=== PATIENT | female | born 1970 | race Caucasian/White ===

== ENCOUNTER → 2017-10-09 | Outpatient (CLI) | payer OTHER ==
[~2017-10-09] MED LIST: CLR10 PO; MTR600X PO; [UNRECOGNIZED DRUG - OTHER] INTNAS
--- NOTE | 2017-10-12 15:02 | MAMMOGRAPHY REPORT ---
BILATERAL DIGITAL SCREENING MAMMOGRAM TOMOSYNTHESIS WITH CAD: 10/09/2017 CLINICAL HISTORY: Routine screening. Patient has no complaints. TECHNIQUE: Breast tomosynthesis in addition to standard 2D mammography was performed. Current study was also evaluated with a Computer Aided Detection (CAD) system. COMPARISON: Comparison is made to exams dated: 09/17/2016 mammogram, 05/11/2015 mammogram, 03/24/2014 mammogram, 11/19/2012 mammogram, and 03/14/2011 mammogram - [facility]. BREAST COMPOSITION: The tissue of both breasts is heterogeneously dense, which may obscure small mas ses. FINDINGS: No suspicious masses, calcifications, or areas of architectural distortion are noted in ei ther breast. There has been no significant interval change compared to prior exams. Bilateral asymme tries are stable. IMPRESSION: ACR BI-RADS CATEGORY 2: BENIGN There is no mammographic evidence of malignancy. A 1 year screening mammogram is recommended. The pa tient will receive written notification of the results. Approximately 10% of breast cancers are not detected with mammography. A negative mammographic report should not delay biopsy if a clinically suggestive mass is present. Tiffanie Lopez M.D. ah/:10/09/2017 15:41:36 Doughnut Maker: Sandrita ROPER(Justin)(Daniella), [facility] letter sent: Normal 1/2 BI-RADS Code: ACR BI-RADS Category 2: Benign
== END | disposition home or self-care (01) ==
LOC: C.MAMM 13:09
PROVIDERS: ATTEND Obstetrics & Gynecology
DX: Z12.31 Encounter for screening mammogram for malignant neoplasm of breast (principal)

== ENCOUNTER 2017-12-27 15:04 | Emergency (ER) | payer OTHER ==
[~2017-12-27] VITALS: Ht 180.3 cm; Wt 84.0 kg
[2017-12-27 15:29] VITALS: BP 147/90; PULSE 89; TEMP 36.8; O2SAT 99; Ht 180.3 cm; Wt 84.0 kg
--- NOTE | 2017-12-27 16:09 | DIAGNOSTIC IMAGING REPORT ---
RIGHT LOWER EXTREMITY VENOUS DOPPLER HISTORY: R calf edema, erythema, pain COMPARISON STUDY: None. FINDINGS: There is normal compressibility, flow, and augmentation within the right lower extremity deep venous system. IMPRESSION: No DVT within the right lower extremity Electronically signed by: Papi Castillo M.D. 12/27/2017 4:08 PM Dictated Date/Time: 12/27/2017 4:08 PM
[2017-12-27] MEDS ORDERED: AZEL0.15 NAE (16:18)
--- NOTE | 2017-12-27 16:32 | EMERGENCY ROOM VISIT NOTE ---
History First contact with patient: 15:34 Chief Complaint: LEG PAIN,LEG INJURY Stated Complaint: RT LEG PAIN, SWOLLEN History of Present Illness The patient is a 47 year old female who presents to the Emergency Room with complaints of right calf cramping and pain that extends into the posterior thigh region. The patient reports that her symptoms started in the middle of the night last night. The patient got out of bed to walk on it thinking that it was just a cramp. She reports persistent pain. She thinks that the calf is larger than the left calf. The patient reports that she does travel extensively for work, driving 6 hours this past Thursday and . She was also on my long air flight 2 weeks ago. The pain does occasionally radiate into the buttock and lower back region. She denies any history of back problems. She currently denies any paresthesias or numbness of the right lower extremity, and rates her discomfort a 6 out of 10. The patient denies any prior history of blood clots or coagulopathies. She denies any recent chest pain, shortness of breath or headache. Review of Systems 10 system review was performed and was negative except for pertinent positives and negatives as indicated in history of present illness Past Medical/Surgical History Medical Problems: (1) Abnormal uterine bleeding (AUB) (2) Leiomyoma of uterus Family History Unremarkable Social History Smoking Status: Never Smoker Alcohol Use: occasionally Marital Status: Housing Status: lives with family Occupation Status: employed Current/Historical Medications Scheduled Azelastine Hcl (Astepro), 1 SPRY ROCIO DAILY Physical Exam Vital Signs Date Time Temp Pulse Resp B/P (MAP) Pulse Ox O2 Delivery O2 Flow Rate FiO2 12/27/17 15:29 36.8 89 18 147/90 99 Room Air Physical Exam CONSTITUTIONAL: Healthy and well nourished. Alert and oriented X 3 with positive affect. Patient appears in mild discomfort from pain. HEENT: Normocephalic, atraumatic. Pupils equal, round and reactive. NECK: Full active range of motion without discomfort. RESPIRATORY: Clear to auscultation bilaterally with no wheezing, crackles, rhonchi or stridor. CARDIOVASCULAR: Regular rate and rhythm with no murmurs, rubs or gallops. MUSCULOSKELETAL: Examination of the right lower extremity does not show any obvious erythema. She has mild soft tissue edema of the calf. She is tender to palpation of the gastroc and distal biceps muscles/hamstrings. She has no other focal tenderness to palpation through the knee, and no joint effusion. Flexion and extension of the knee does not worsen her discomfort. Negative logroll. Negative straight leg raise. Pedal pulses are intact. INTEGUMENTARY: No rash or other significant dermatologic conditions noted. NEUROLOGIC: No focal neurologic deficits noted. Right foot and toes are sensory intact. Medical Decision & Procedures ER Provider Diagnostic Interpretation: Venous ultrasound of the right lower extremity is negative for deep vein thrombosis. Radiologist report is as follows: RIGHT LOWER EXTREMITY VENOUS DOPPLER HISTORY: R calf edema, erythema, pain COMPARISON STUDY: None. FINDINGS: There is normal compressibility, flow, and augmentation within the right lower extremity deep venous system. IMPRESSION: No DVT within the right lower extremity ED Course Patient history and physical exam were performed. Nurse's notes were reviewed. Vital signs were reviewed, showing a mildly elevated blood pressure. The patient is afebrile. The patient refused any analgesics. Ultrasound of the right lower extremity was negative for deep vein thrombosis. The patient was advised that this is likely a musculoskeletal injury. She was encouraged to alternate ice and heat to calf. An Suleiman wrap was also applied. The patient was instructed to follow-up with her PCP or orthopedics if symptoms are not improving within the next week. The patient was happy with plan of care, and voiced understanding of all discharge instructions. I did encourage the patient follow-up with her PCP for blood pressure recheck. Medical Decision Medication Reconcilliation Current Medication List: was personally reviewed by me Blood Pressure Screening Patient's blood pressure: Elevated blood pressure Blood pressure disposition: Referred to PCP Impression Primary Impression: Right calf pain Departure Information Referrals No Doctor, Assigned (PCP) Patient Instructions [facility]
== END 2017-12-27 16:33 | disposition home or self-care (01) ==
LOC: C.EDB 15:05 → C.EDD 16:33
DX: M79.604 Pain in right leg (principal)

== ENCOUNTER 2021-03-13 06:02 | Inpatient (IN) ==
[2021-03-13] MEDS ORDERED: SODIUM CHLORIDE 0.9% 1000ML 1,000 ML IV ONE (06:36)
[2021-03-13] MEDS ORDERED: ACETAMINOPHEN 1,000 MG/100 ML VIAL IV STA (06:36)
[2021-03-13] MEDS ORDERED: KETOROLAC TROMETHAMINE 15 MG/ML VIAL IV STA (06:37)
[2021-03-13 06:39] LABS: Basophils # (auto) 0.03 K/uL (0-0.2); Basophils % (auto) 0.3 %; Eosinophils # (auto) 0.08 K/uL (0-0.5); Eosinophils % (auto) 0.7 %; Hematocrit (blood only) 43.7 % (37-47); Hemoglobin 15.2 g/dL (12.0-16.0); Immature Granulocytes # (auto) 0.02 K/uL (0.00-0.02); Immature Granulocytes % (auto) 0.2 %; Lymphocytes # (auto) 1.73 K/uL (1.2-3.4); Lymphocytes % (auto) 15.9 %; Mean Corpuscular Hemoglobin 29.3 pg (25-34); Mean Corpuscular Hgb Conc 34.8 g/dL (32-36); Mean Corpuscular Volume 84.4 fL (80-100); Mean Platelet Volume 9.7 fL (7.4-10.4); Monocytes # (auto) 0.89 K/uL (0.11-0.59); Monocytes % (auto) 8.2 %; Neutrophils % (auto) 74.7 %; Platelet Count 291 K/uL (130-400); RDW Coefficient of Variation 12.9 % (11.5-14.5); RDW Standard Deviation 40.1 fL (36.4-46.3); Red Blood Count 5.18 M/uL (4.2-5.4); White Blood Count 10.85 K/uL (4.8-10.8)
[2021-03-13 06:41] LABS: Appearance Urine Turbid (Clear); Bacteria Urine Automated 1+ (Negative); Bilirubin Urine Negative (Negative); Blood Urine Negative (Negative); Color Urine Dark Yellow; Epithelial Cell Urine Auto >30 /lpf (0-5); Glucose Urine UA Negative (Negative); Ketones Urine 1+ (Negative); Leukocyte Esterase Urine 1+ (Negative); Nitrite Urine Negative (Negative); Protein Urine Trace (Negative); RBC Urine Automated 0-4 /hpf (0-4); Specific Gravity Urine 1.025 (1.000-1.030); Urobilinogen Urine Negative (Negative)
[2021-03-13 06:54] LABS: Albumin Level 3.7 gm/dl (3.4-5.0); BUN Creatinine Ratio 14.5 (10-20); Cast Urine Automated 0 /lpf (0-5); Creatinine Clr Calc Pharmacy 99.2 ml/min; Est GFR (Non-African American) 92.3; Potassium 3.9 mmol/L (3.5-5.1)
[2021-03-13 06:57] LABS: Albumin Globulin Ratio 0.8 (0.9-2); Globulin 4.5 gm/dl (2.5-4.0); Total Protein 8.2 gm/dl (6.4-8.2)
[2021-03-13] MEDS ORDERED: OPTIRAY 320 100ml IV ONE (07:12)
[2021-03-13 07:42] LABS: Pregnancy Test, Serum Negative (Negative)
--- NOTE | 2021-03-13 07:53 | CT Scan Report ---
ABDOMEN AND PELVIS CT WITH IV CONTRAST CT DOSE: 753.72 mGycm HISTORY: Acute left lower quadrant abdominal pain lower abdominal pain TECHNIQUE: Multiaxial CT images of the abdomen and pelvis were performed following the IV administrat ion of 88 cc of Optiray 320, A dose lowering technique was utilized adhering to the principles of AL EZRA. COMPARISON STUDY: None. FINDINGS: Trace pleural effusions with mild dependent subsegmental bibasilar atelectasis. There is no pneumatos is or pneumoperitoneum. Mild splenomegaly, 13.3 cm. The pancreas, adrenal glands, and gallbladder theo ear unremarkable. There is a 1.1 cm ill-defined hypodense lesion of the inferior right hepatic lobe, image 33 which is incompletely characterized on this single phase study. There are a few subcentimeter hypodensities of the kidneys measuring up to 6 mm on the right which ar e too small to characterize however suggests cysts. No hydronephrosis. Urinary bladder wall thickenin g with partial distention. Hysterectomy. Air within the vaginal cuff. No adnexal mass lesion. No aort ic aneurysm or adenopathy identified. No bowel obstruction. Small volume of free fluid within the dependent pelvis. Colonic diverticulosis. There is a large peripherally inflamed air and debris filled outpouching of the proximal sigmoid col on on image 313 which demonstrates prominent surrounding inflammatory stranding with trace free fluid . There is moderate associated wall thickening of the colon. Tiny adjacent pericolonic lymph nodes me asure up to 5 mm. No drainable abscess. Normal appendix. Unremarkable soft tissues and breast parench yma. No acute fracture. 13 mm sclerotic focus of the right acetabulum may reflect a bone island. IMPRESSION: 1. Severe focal inflammation of the proximal sigmoid colon with findings suggestive of acute divertic ulitis. There may be a small associated microperforation, however there is no pneumoperitoneum or abs cess. A follow-up colonoscopy after treatment coarse is recommended to exclude the less likely possib ility of an underlying lesion. 2. Tiny pericolonic lymph nodes, likely reactive. 3. No bowel obstruction. 4. Trace pleural effusions. 5. Additional findings as above. ACT 112: Negative or not required by law. The above report was generated using voice recognition software. It may contain grammatical, syntax o r spelling errors. Electronically signed by: Dominick Sparks M.D. 03/13/2021 7:52 AM
[2021-03-13] MEDS ORDERED: metroNIDAZOLE 500 MG/100 ML BAG IV STA (08:37)
[2021-03-13] MEDS ORDERED: CIPROFLOXACIN / D5W 400 MG/200 ML BAG IV STA (08:37)
[2021-03-13] MEDS: SODIUM CHLORIDE 0.9% 1000ML 1,000 ML IV SCH ×2 (08:51→18:57)
--- NOTE | 2021-03-13 09:07 | History & Physical Report ---
Date of Service March 13, 2021 Assessment & Plan (1) Diverticulitis: CT a/p on 03/13 showed "severe focal inflammation of the proximal sigmoid colon with findings suggestive of acute diverticulitis." With a possible microperforation. - NPO except sips/meds - General surgery consult - Pain and nausea control - Given penicillin allergy, will use Cipro/Flagyl for abx coverage (2) DVT prophylaxis: SCDs - Low DVT risk per admission calculator & holding heparin in case there is need for surgery History of Present Illness Primary Care Provider: Bryan Garcia MD 50yo F w/ no sig PMH who presents with diverticulitis. She had some mild abdominal pressure on Thursday that she associated with some weakness, but it resolved. Returned on Thursday again, but she was at work and it passed. Today, she had much more significant pain (7-8/10) in the suprapubic and LLQ with radiation upwards. She notes the pain was associated with a fever last night (100 degrees), HAYES, but no nausea or vomiting, no shortness of breath. The pain is worse with walking and movement. She has never had an episode of diverticulitis before and never had a colonoscopy. Allergies Allergy/AdvReac Type Severity Reaction Status Date / Time Penicillins Allergy Severe THROAT Verified 03/13/21 07:45 SWELLING,RASH clarithromycin Allergy Intermediate RASH Verified 03/13/21 07:45 Sulfa (Sulfonamide Allergy Intermediate RASH Verified 03/13/21 07:45 Antibiotics) Home Medications Medication Instructions Recorded Confirmed Type azelastine 2 spray INTRANASAL DAILY 03/13/21 03/13/21 History Past Med/Surg History Medical History Leiomyoma of uterus S/p hysterectomy ~2014. Surgical History H/O: hysterectomy Family History Father Hypertension Social History Smoking Status: Never smoker Feels Safe at Home: Yes Review of Systems Review of Systems: All systems reviewed & are unremarkable except as noted in HPI & below Physical Exam Constitutional: WD/WN, vitals as above Eyes: EOM intact bilaterally; no conjunctival abnormality ENMT: external ear and nose normal, oropharynx normal Neck: trachea midline, no thyromegaly normal visual inspection Respiratory: normal respiratory effort, lungs clear to auscultation no respiratory distress Cardiovascular: RRR, no murmur, no edema Gastrointestinal (Abdomen): Inspection/Auscultation: abdomen normal to inspection and + hypoactive bowel sounds; abdomen not distended Percussion/Palpation: + abdomen tender (LLQ and suprapubic area) and abdomen soft; no guarding and abdomen not rigid Musculoskeletal: no cyanosis or clubbing, extremities motor strength 5/5 Skin: no rashes, warm and dry Neurologic: moves all extremities and awake Psychiatric: Orientation: alert, oriented to person and cooperative Results & Data Results & Data ([facility]) Vital Signs (Past 12 Hours) Vital Signs Temp Pulse Pulse Resp BP BP Pulse Ox 03/13/21 07:25 80 18 137/83 99 03/13/21 06:46 96 03/13/21 06:07 36.2 C L 107 H 20 122/79 96 Code Status & VTE Plan VTE Prophylaxis Plan VTE Prophylaxis will be ordered: Yes PG Care Time/CCT Total # of Minutes Spent Total Time Spent with Patient: Total time spent is greater than 50% in coordination of care (as documented) at patient's floor/unit and/or counseling patient: Coding Level of Care Code 13817 Initial Inpt Care Lvl 3 Diagnoses Diverticulitis K57.92 DVT prophylaxis Z29.9
[2021-03-13 09:53] LABS: Influenza A virus by PCR Negative (Neg); Influenza B virus by PCR Negative (Neg); RSV by PCR Negative (Neg); SARS CoV2 RNA(COVID-19) InHosp NEGATIVE (Negative)
[2021-03-13] MEDS ORDERED: ONDANSETRON INJ 2 MG/ML 2 ML VIAL IV PRN (11:59)
[2021-03-13] MEDS ORDERED: CIPROFLOXACIN / D5W 400 MG/200 ML BAG IV SCH (11:59)
[2021-03-13] MEDS ORDERED: MoRPHine SULFATE 2 MG/ML CARP IV PRN (11:59)
--- NOTE | 2021-03-13 12:28 | Surgery Consultation ---
Date of Consultation March 13, 2021 Assessment & Plan (1) Diverticulitis: This is a 50y F with no significant PMH who presented to the [facility] on 03/13/14 with complaints of severe abdominal pain in the left lower quadrant associated with fever. Patient underwent a CT a/p that revealed severe focal inflammation of the proximal sigmoid colon with findings suggestive of acute diverticulitis. There may be a small associated microperforation, however there is no pneumoperitoneum or abscess. WBC 10. Her vital signs are stable. On examination abdomen is soft and tender to palpation in the LLQ. For now would recommend a trial of conservative management with bowel rest (sips/chips okay), IVF, and IV abx. She will likely require a colonoscopy as an outpatient. No plans for surgical intervention at this time. We will continue to follow closely. History of Present Illness Attending Physician: Johan Bejarano MD History of Present Illness This is a 50y F with no significant PMH who presented to the [facility] on 03/13/14 with complaints of severe abdominal pain. Patient reports her abdominal discomfort started on Thursday and on Thursday it felt more like abdominal pressure. She states last night it acutely worsened, was located in the left lower quadrant, rating her pain an 8/10 prompting her to come into the hospital for further evaluation. A CT a/p was obtained that revealed severe focal inflammation of the proximal sigmoid colon with findings suggestive of acute diverticulitis. There may be a small associated microperforation, however there is no pneumoperitoneum or abscess. Patient reports a fever >100F yesterday evening. She denies nausea/vomiting or change in bowel habits. She is passing flatus and last BM was yesterday. She states after eating dinner yesterday her pain worsened. She never underwent colonoscopy. She reports this is her first episode of diverticulitis. Allergies Allergy/AdvReac Type Severity Reaction Status Date / Time Penicillins Allergy Severe THROAT Verified 03/13/21 07:45 SWELLING,RASH clarithromycin Allergy Intermediate RASH Verified 03/13/21 07:45 Sulfa (Sulfonamide Allergy Intermediate RASH Verified 03/13/21 07:45 Antibiotics) Home Medications Medication Instructions Recorded Confirmed Type azelastine 2 spray INTRANASAL DAILY 03/13/21 03/13/21 History Patient History Social History Smoking Status: Never smoker Feels Safe at Home: Yes Review of Systems Constitutional: + fever; no chills Cardiovascular: Additional Comments: some chest pressure Gastrointestinal: + abdominal pain (LLQ); no nausea, no vomiting and no change in bowel habits Physical Exam Physical Exam: awake/alert Constitutional: well developed and well nourished; no acute distress Respiratory: normal respiratory effort Gastrointestinal (Abdomen): Percussion/Palpation: + abdomen tender (TTP in the LLQ) and abdomen soft Results & Data ([facility]) Vital Signs (Past 12 Hours) Vital Signs Temp Pulse Pulse Pulse Resp BP BP 03/13/21 12:00 36.6 C 76 18 123/82 03/13/21 11:30 76 18 112/69 03/13/21 11:00 73 12 113/81 03/13/21 10:31 76 15 03/13/21 10:30 72 17 110/71 03/13/21 10:01 79 17 03/13/21 10:00 78 18 126/81 03/13/21 09:31 81 19 03/13/21 09:30 74 20 122/80 03/13/21 09:02 85 16 03/13/21 09:00 81 17 131/94 03/13/21 07:25 80 18 03/13/21 06:46 03/13/21 06:07 36.2 C L 107 H 20 122/79 BP Pulse Ox 03/13/21 12:00 100 03/13/21 11:30 99 03/13/21 11:00 99 03/13/21 10:31 98 03/13/21 10:30 98 03/13/21 10:01 97 03/13/21 10:00 98 03/13/21 09:31 97 03/13/21 09:30 96 03/13/21 09:02 96 03/13/21 09:00 97 03/13/21 07:25 137/83 99 03/13/21 06:46 96 03/13/21 06:07 [address] WITH IV CONTRAST CT DOSE: 753.72 mGycm HISTORY: Acute left lower quadrant abdominal pain lower abdominal pain TECHNIQUE: Multiaxial CT images of the abdomen and pelvis were performed following the IV administration of 88 cc of Optiray 320, A dose lowering technique was utilized adhering to the principles of ALARA. COMPARISON STUDY: None. FINDINGS: Trace pleural effusions with mild dependent subsegmental bibasilar atelectasis. There is no pneumatosis or pneumoperitoneum. Mild splenomegaly, 13.3 cm. The pancreas, adrenal glands, and gallbladder appear unremarkable. There is a 1.1 cm ill-defined hypodense lesion of the inferior right hepatic lobe, image 33 which is incompletely characterized on this single phase study. There are a few subcentimeter hypodensities of the kidneys measuring up to 6 mm on the right which are too small to characterize however suggests cysts. No hydronephrosis. Urinary bladder wall thickening with partial distention. Hysterectomy. Air within the vaginal cuff. No adnexal mass lesion. No aortic aneurysm or adenopathy identified. No bowel obstruction. Small volume of free fluid within the dependent pelvis. Colonic diverticulosis. There is a large peripherally inflamed air and debris filled outpouching of the proximal sigmoid colon on image 313 which demonstrates prominent surrounding inflammatory stranding with trace free fluid. There is moderate associated wall thickening of the colon. Tiny adjacent pericolonic lymph nodes measure up to 5 mm. No drainable abscess. Normal appendix. Unremarkable soft tissues and breast parenchyma. No acute fracture. 13 mm sclerotic focus of the right acetabulum may reflect a bone island. IMPRESSION: 1. Severe focal inflammation of the proximal sigmoid colon with findings suggestive of acute diverticulitis. There may be a small associated microperforation, however there is no pneumoperitoneum or abscess. A follow-up colonoscopy after treatment coarse is recommended to exclude the less likely possibility of an underlying lesion. 2. Tiny pericolonic lymph nodes, likely reactive. 3. No bowel obstruction. 4. Trace pleural effusions. 5. Additional findings as above. ACT 112: Negative or not required by law. The above report was generated using voice recognition software. It may contain grammatical, syntax or spelling errors. Electronically signed by: Dominick Sparks M.D. 03/13/2021 7:52 AM PG Care Time/CCT Total # of Minutes Spent Total Time Spent with Patient: Total time spent is greater than 50% in coordination of care (as documented) at patient's floor/unit and/or counseling patient: Coding Level of Care Code 09396 Inpt Consult Level 4 Diagnoses Diverticulitis K57.92
[2021-03-13] MEDS: LACTATED RINGER'S 1,000 ML IV SCH (13:28)
[2021-03-13] MEDS: ACETAMINOPHEN 325 MG TAB PO PRN ×2 (13:28→19:37)
[2021-03-13] MEDS: metroNIDAZOLE 500 MG/100 ML BAG IV SCH ×2 (17:08→23:57)
--- NOTE | 2021-03-13 18:00 | Emergency Department Note ---
Impression & Plan Diverticulitis, Lower abdominal pain ED Provider Note NAME: DANIS ORTIZ AGE: 50 SEX: F ARRIVES VIA: Walk-In INFORMANT: Patient, ED PROVIDER(S): Petar Hudson MD CHIEF COMPLAINT: Abdominal pain PLAN: Disposition: Admit MEDICAL DECISION MAKING: The patient is a pleasant 50-year-old woman who presents to the emergency department with worsening lower abdominal pain over the past several days. The patient reports feeling feverish. She denies any cough, congestion, vomiting, diarrhea, constipation or urinary symptoms. She denies any prior history of similar symptoms in the past. She denies known Covid-19 exposures. On arrival patient is uncomfortable no acute distress, afebrile, HR 100s with stable vital signs. She has mild lower abdominal tenderness without guarding or rebound. WBC 10.8, nonspecific. H/H and platelets within normal limits. Chemistry without metabolic acidosis. LFTs unremarkable. Lipase not elevated. hCG negative. UA with epithelial cells in the setting of patient denying urinary symptoms. COVID- 19 PCR negative. Influenza and RSV PCR negative. CT of the abdomen pelvis was performed and demonstrates diverticulitis with evidence suggestive of microperforation. Given this, reasonable to meet the patient for further management with IV antibiotics. Given h/o PCN treatment initiated with IV Ciprofloxacin and Flagyl. The patient and her at bedside agree. Case was d/w Dr. Bejarano [facility] [place] [facility] hospitalist who will evaluate the patient for admission. Triage Nursing notes reviewed and agree them. Prior medical records reviewed Vital Signs: reviewed and remarkable for tachycardia. Differential diagnosis: Appendicitis, ovarian cyst, ovarian torsion, ectopic , TOA, PID, infections, diverticulitis, UTI, obstruction, mesenteric ischemia, aortic pathology, inflammatory bowel disease, renal colic, PUD, pancreatitis, biliary pathology, hernia, volvulus, constipation, as well as other pathologies. ER treatment provided: See below. Diagnostics interpreted by me: Cardiac Monitoring: An order for continuous cardiac monitoring was placed and demonstrated Sinus tachycardia, 107 bpm, no ectopy. Laboratory studies: See below Imaging studies: See below Consultation(s): Case was d/w Dr. Bejarano [facility] [place] hospitalist who will evaluate the patient for admission. HPI: The patient is a pleasant 50-year-old woman who presents to the emergency department with worsening lower abdominal pain over the past several days. The patient reports feeling feverish. She denies any cough, congestion, vomiting, diarrhea, constipation or urinary symptoms. She denies any prior history of similar symptoms in the past. She denies known Covid-19 exposures. ROS: See above HPI for pertinent positives & negatives. A total of 10 systems reviewed and were otherwise negative. PAST MEDICAL HISTORY:See Below PAST SURGICAL HISTORY:See Below FAMILY HISTORY:See Below SOCIAL HISTORY:See Below HOME MEDICATIONS:See Below ALLERGIES:See Below VITALS:See Below PHYSICAL EXAMINATION: GENERAL: Awake, alert, uncomfortable-appearing, in no distress HENT: Normocephalic, atraumatic. Oropharynx with dry mucous membranes and otherwise unremarkable. EYES: Normal conjunctiva. Sclera non-icteric. NECK: Supple. No nuchal rigidity. FROM. No JVD. RESPIRATORY: Clear to auscultation. CARDIAC: Tachycardic rate, normal rhythm. Extremities warm and well perfused. Pulses equal. ABDOMEN: Soft, non-distended. Mild lower abdominal tenderness to palpation. No rebound or guarding. No masses. RECTAL: Deferred. MUSCULOSKELETAL: Chest examination reveals no tenderness. The back is symmetrical on inspection without obvious abnormality. There is no CVA tenderness to palpation. No joint edema. LOWER EXTREMITIES: Calves are equal size bilaterally and non-tender. No edema. No discoloration. NEURO: Normal sensorium. No sensory or motor deficits noted. SKIN: No rash or jaundice noted. Petar Hudson MD Past Med/Surg History Medical History Leiomyoma of uterus S/p hysterectomy ~2014. 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 Required: No Beliefs That Will Affect Care: None Current Living Situation: Family Other Information That Helps Us Care for You: No Feels Safe at Home: Yes Safety Concerns: Feels Safe At This Time Allergies Allergies Allergy/AdvReac Type Severity Reaction Status Date / Time Penicillins Allergy Severe THROAT Verified 03/13/21 07:45 SWELLING,RASH clarithromycin Allergy Intermediate RASH Verified 03/13/21 07:45 Sulfa (Sulfonamide Allergy Intermediate RASH Verified 03/13/21 07:45 Antibiotics) Home Meds Home Medications Medication Instructions Recorded Confirmed azelastine 2 spray INTRANASAL DAILY 03/13/21 03/13/21 Results & Data (ED) Vital Signs Vital Signs - 24 hr 03/13/21 06:07 03/13/21 06:46 03/13/21 07:25 Temperature 36.2 C L Temperature Source Oral Pulse Rate 107 H Pulse Rate [Apical] 80 Pulse Rate from SpO2 Sensor Respiratory Rate 20 18 Blood Pressure 122/79 Blood Pressure [Right Arm] 137/83 Blood Pressure Mean 93 Blood Pressure Mean [Right Arm] 101 Pulse Oximetry 96 96 99 Oxygen Delivery Method Room Air Room Air Room Air Sepsis Recent Fever Within 48 Hours No Sepsis New/Unexplained Change in Mental Status N/A Sepsis Action Taken by Nursing No Action Required 03/13/21 09:00 03/13/21 09:02 Temperature Temperature Source Pulse Rate 81 85 Pulse Rate [Apical] Pulse Rate from SpO2 Sensor 81 85 Respiratory Rate 17 16 Blood Pressure 131/94 Blood Pressure [Right Arm] Blood Pressure Mean 106 Blood Pressure Mean [Right Arm] Pulse Oximetry 97 96 Oxygen Delivery Method Sepsis Recent Fever Within 48 Hours Sepsis New/Unexplained Change in Mental Status Sepsis Action Taken by Nursing Laboratory Data Attestation: I reviewed the patient's lab results. Result diagrams: 03/13/21 06:18 03/13/21 06:18 Lab Results 03/13/21 03/13/21 03/13/21 Range/Units 06:18 06:18 06:18 WBC 10.85 H (4.8-10.8) K/uL RBC 5.18 (4.2-5.4) M/uL Hgb 15.2 (12.0-16.0) g/dL Hct 43.7 (37-47) % MCV 84.4 (80-100) fL MCH 29.3 (25-34) pg MCHC 34.8 (32-36) g/dL RDW Std Deviation 40.1 (36.4-46.3) fL RDW Coeff of Sam 12.9 (11.5-14.5) % Plt Count 291 (130-400) K/uL MPV 9.7 (7.4-10.4) fL Immature Gran % (Auto) 0.2 % Neut % (Auto) 74.7 % Lymph % (Auto) 15.9 % [place] % (Auto) 8.2 % Eos % (Auto) 0.7 % Baso % (Auto) 0.3 % Neut # (Auto) 8.10 H (1.4-6.5) K/uL Lymph # (Auto) 1.73 (1.2-3.4) K/uL [place] # (Auto) 0.89 H (0.11-0.59) K/uL Eos # (Auto) 0.08 (0-0.5) K/uL Baso # (Auto) 0.03 (0-0.2) K/uL Immature Gran # (Auto) 0.02 (0.00-0.02) K/uL Sodium 141 (136-145) mmol/L Potassium 3.9 (3.5-5.1) mmol/L Chloride 109 H (98-107) mmol/L Carbon Dioxide 27 (21-32) mmol/L Anion Gap 5.0 (3-11) BUN 11 (7-18) mg/dl Creatinine 0.75 (0.6-1.2) mg/dl Est Cr Clr Drug Dosing 99.2 ml/min Est GFR ( Amer) 107.0 Est GFR (Non-Af Amer) 92.3 BUN/Creatinine Ratio 14.5 (10-20) Glucose 116 H (70-99) mg/dl Calcium 9.0 (8.5-10.1) mg/dl Total Bilirubin 1.0 (0.2-1) mg/dl AST 7 L (15-37) U/L ALT 20 (12-78) U/L Alkaline Phosphatase 109 (45-117) U/L Total Protein 8.2 (6.4-8.2) gm/dl Albumin 3.7 (3.4-5.0) gm/dl Globulin 4.5 H (2.5-4.0) gm/dl Albumin/Globulin Ratio 0.8 L (0.9-2) Lipase 80 (73-393) U/L HCG, Qual (Negative) Urine Color Dark Yellow Urine Appearance Turbid A (Clear) Urine pH 6.0 (4.5-7.5) Ur Specific [place] 1.025 (1.000-1.030) Urine Protein Trace H (Negative) Urine Glucose (UA) Negative (Negative) Urine Ketones 1+ H (Negative) Urine Blood Negative (Negative) Urine Nitrite Negative (Negative) Urine Bilirubin Negative (Negative) Urine Urobilinogen Negative (Negative) Ur Leukocyte Esterase 1+ H (Negative) Urine WBC (Auto) 10-30 H (0-5) /hpf Urine RBC (Auto) 0-4 (0-4) /hpf U Hyaline Cast (Auto) 0 (0-5) /lpf U Epithel Cells (Auto) >30 H (0-5) /lpf Urine Bacteria (Auto) 1+ H (Negative) COVID-19 Eval Order SARS-CoV-2 (PCR) (Negative) Influenza Type A (PCR) (Neg) Influenza Type B (PCR) (Neg) RSV (RT-PCR) (Neg) 03/13/21 03/13/21 03/13/21 Range/Units 06:36 08:50 08:50 WBC (4.8-10.8) K/uL RBC (4.2-5.4) M/uL Hgb (12.0-16.0) g/dL Hct (37-47) % MCV (80-100) fL MCH (25-34) pg MCHC (32-36) g/dL RDW Std Deviation (36.4-46.3) fL RDW Coeff of Sam (11.5-14.5) % Plt Count (130-400) K/uL MPV (7.4-10.4) fL Immature Gran % (Auto) % Neut % (Auto) % Lymph % (Auto) % [place] % (Auto) % Eos % (Auto) % Baso % (Auto) % Neut # (Auto) (1.4-6.5) K/uL Lymph # (Auto) (1.2-3.4) K/uL [place] # (Auto) (0.11-0.59) K/uL Eos # (Auto) (0-0.5) K/uL Baso # (Auto) (0-0.2) K/uL Immature Gran # (Auto) (0.00-0.02) K/uL Sodium (136-145) mmol/L Potassium (3.5-5.1) mmol/L Chloride (98-107) mmol/L Carbon Dioxide (21-32) mmol/L Anion Gap (3-11) BUN (7-18) mg/dl Creatinine (0.6-1.2) mg/dl Est Cr Clr Drug Dosing ml/min Est GFR ( Amer) Est GFR (Non-Af Amer) BUN/Creatinine Ratio (10-20) Glucose (70-99) mg/dl Calcium (8.5-10.1) mg/dl Total Bilirubin (0.2-1) mg/dl AST (15-37) U/L ALT (12-78) U/L Alkaline Phosphatase (45-117) U/L Total Protein (6.4-8.2) gm/dl Albumin (3.4-5.0) gm/dl Globulin (2.5-4.0) gm/dl Albumin/Globulin Ratio (0.9-2) Lipase (73-393) U/L HCG, Qual Negative (Negative) Urine Color Urine Appearance (Clear) Urine pH (4.5-7.5) Ur Specific [place] (1.000-1.030) Urine Protein (Negative) Urine Glucose (UA) (Negative) Urine Ketones (Negative) Urine Blood (Negative) Urine Nitrite (Negative) Urine Bilirubin (Negative) Urine Urobilinogen (Negative) Ur Leukocyte Esterase (Negative) Urine WBC (Auto) (0-5) /hpf Urine RBC (Auto) (0-4) /hpf U Hyaline Cast (Auto) (0-5) /lpf U Epithel Cells (Auto) (0-5) /lpf Urine Bacteria (Auto) (Negative) COVID-[address]FluRsv at [facility] SARS-CoV-2 (PCR) NEGATIVE (Negative) Influenza Type A (PCR) Negative (Neg) Influenza Type B (PCR) Negative (Neg) RSV (RT-PCR) Negative (Neg) Administered Medications Acetaminophen (Acetaminophen 325 Mg Tab) 650 mg PO Q4H PRN PRN Reason: Pain or Fever Stop: 04/12/21 11:58 Last Admin: 03/13/21 19:37 Dose: 650 mg Documented by: [id number] Admin: 03/13/21 13:28 Dose: 650 mg Documented by: [id number] Lactated Ringer's (Lr) 1,000 mls @ 80 mls/hr IV .[id number] OPAL Stop: 04/12/21 11:58 Last Infusion: 03/13/21 18:10 Dose: 80 mls/hr Documented by: [id number] Infusion: 03/13/21 17:08 Dose: 0 mls/hr Documented by: [id number] Admin: 03/13/21 13:28 Dose: 80 mls/hr Documented by: [id number] Metronidazole (Flagyl) 500 mg in 100 mls @ 100 mls/hr IV Q8H OPAL; Protocol Stop: 03/23/21 15:59 Last Infusion: 03/13/21 18:08 Dose: 0 mls/hr Documented by: [id number] Admin: 03/13/21 17:08 Dose: 100 mls/hr Documented by: [id number] Discontinued Medications Sodium Chloride (Nss 1000ml) 1,000 mls @ 999 mls/hr IV .[id number] ONE Stop: 03/13/21 07:36 Last Infusion: 03/13/21 09:11 Dose: 0 mls/hr Documented by: [id number] Admin: 03/13/21 06:42 Dose: 999 mls/hr Documented by: [id number] Acetaminophen (Ofirmev) 1,000 mg in 100 mls @ 400 mls/hr IV NOW STA Stop: 03/13/21 06:50 Last Infusion: 03/13/21 07:17 Dose: 0 mls/hr Documented by: [id number] Admin: 03/13/21 06:41 Dose: 400 mls/hr Documented by: [id number] Ciprofloxacin (Cipro / D5w) 400 mg in 200 mls @ 100 mls/hr IV NOW STA; Protocol Stop: 03/13/21 10:36 Last Infusion: 03/13/21 15:43 Dose: 0 mls/hr Documented by: [id number] Admin: 03/13/21 08:51 Dose: 100 mls/hr Documented by: [id number] Metronidazole (Flagyl) 500 mg in 100 mls @ 100 mls/hr IV NOW STA Stop: 03/13/21 09:36 Last Infusion: 03/13/21 10:12 Dose: 0 mls/hr Documented by: [id number] Admin: 03/13/21 08:51 Dose: 100 mls/hr Documented by: [id number] Sodium Chloride (Nss 1000ml) 1,000 mls @ 125 mls/hr IV .Q8H OPAL Stop: 04/12/21 08:44 Last Admin: 03/13/21 18:57 Dose: Not Given Documented by: [id number] Infusion: 03/13/21 17:08 Dose: 0 mls/hr Documented by: [id number] Admin: 03/13/21 08:51 Dose: 125 mls/hr Documented by: [id number] Ioversol (Ioversol 100ml) 88 ml IV ONCE ONE Stop: 03/13/21 07:13 Last Admin: 03/13/21 07:12 Dose: 88 ml Documented by: [id number] Ketorolac Tromethamine (Ketorolac Tromethamine 15 Mg/Ml Vial) 15 mg IV NOW STA Stop: 03/13/21 06:38 Last Admin: 03/13/21 06:42 Dose: 15 mg Documented by: [id number] Imaging Data Radiologist's Impression: Abdomen/Pelvis CT 03/13/21 06:[address] WITH IV CONTRAST CT DOSE: 753.72 mGycm HISTORY: Acute left lower quadrant abdominal pain lower abdominal pain TECHNIQUE: Multiaxial CT images of the abdomen and pelvis were performed follo wing the IV administration of 88 cc of Optiray 320, A dose lowering technique was utilized adhering to the principles of ALARA. COMPARISON STUDY: None. FINDINGS: Trace pleural effusions with mild dependent subsegmental bibasilar atelectasis. There is no pneumatosis or pneumoperitoneum. Mild splenomegaly, 13.3 cm. The p ancreas, adrenal glands, and gallbladder appear unremarkable. There is a 1.1 cm ill-defined hypodense lesion of the inferior right hepatic lobe, image 33 which is incompletely characterized on this single phase study. There are a few subcentimeter hypodensities of the kidneys measuring up to 6 mm on the right which are too small to characterize however suggests cysts. No hydronephrosis. Urinary bladder wall thickening with partial distention. Hysterectomy. Air within the vaginal cuff. No adnexal mass lesion. No aortic aneurysm or adenopathy identified. No bowel obstruction. Small volume of free fluid within the dependent pelvis. Colonic diverticulosis. There is a large peripherally inflamed air and debris filled outpouching of the proximal sigmoid colon on image 313 which demonstrates prominent surrounding inflammatory stranding with trace free fluid. There is moderate associated wall thickening of the colon. Tiny adjacent pericolonic lymph nodes measure up to 5 mm. No drainable abscess. Normal appendix. Unremarkable soft tissues and breast parenchyma. No acute fracture. 13 mm sclerotic focus of the right acetabulum may reflect a bone island. IMPRESSION: 1. Severe focal inflammation of the proximal sigmoid colon with findings suggestive of acute diverticulitis. There may be a small associated microperforation, however there is no pneumoperitoneum or abscess. A follow-up colonoscopy after treatment coarse is recommended to exclude the less likely possibility of an underlying lesion. 2. Tiny pericolonic lymph nodes, likely reactive. 3. No bowel obstruction. 4. Trace pleural effusions. 5. Additional findings as above. ACT 112: Negative or not required by law. The above report was generated using voice recognition software. It may contain grammatical, syntax or spelling errors. Electronically signed by: Dominick Sparks M.D. 03/13/2021 7:52 AM Discharge Plan Visit Data Chief Complaint: Abdominal Pain Stated Complaint: abd pain ED Provider: Petar Hudson Discharge Problem: Diverticulitis, Lower abdominal pain Patient Disposition: Admitted As Inpatient Discharge Instructions Interventions: ED Discharge Assessment Last Done: 03/13/21 11:47
[2021-03-13] MEDS ORDERED: hydrOXYzine HCl 25 MG TAB PO PRN (18:14)
[2021-03-13] MEDS: CIPROFLOXACIN / D5W 400 MG/200 ML BAG IV SCH (21:48)
[2021-03-14] MEDS: LACTATED RINGER'S 1,000 ML IV SCH ×2 (03:18→19:53)
[2021-03-14 06:46] LABS: Hematocrit (blood only) 41.2 % (37-47); Hemoglobin 13.4 g/dL (12.0-16.0); Mean Corpuscular Hemoglobin 28.5 pg (25-34); Mean Corpuscular Hgb Conc 32.5 g/dL (32-36); Mean Corpuscular Volume 87.7 fL (80-100); Mean Platelet Volume 9.4 fL (7.4-10.4); Platelet Count 198 K/uL (130-400); White Blood Count 8.91 K/uL (4.8-10.8)
[2021-03-14 07:05] LABS: BUN Creatinine Ratio 13.8 (10-20); Calcium 8.4 mg/dl (8.5-10.1); Creatinine Clr Calc Pharmacy 151.8 ml/min; Est GFR (African American) 130.7; Est GFR (Non-African American) 112.8; Magnesium 2.1 mg/dl (1.8-2.4); Potassium 3.6 mmol/L (3.5-5.1)
[2021-03-14] MEDS: metroNIDAZOLE 500 MG/100 ML BAG IV SCH ×3 (07:49→23:01)
[2021-03-14] MEDS: CIPROFLOXACIN / D5W 400 MG/200 ML BAG IV SCH ×2 (08:57→20:51)
--- NOTE | 2021-03-14 09:43 | Surgery Progress Note ---
Date of Service March 14, 2021 Assessment & Plan (1) Diverticulitis: WBC improved start on clears cont IV cipro/flagyl as above. doing well. mild suprapubic ttp. improving. herbert clears so far. could have full liquids this evening. potential d/c tomorrow. Admission and Anticipated Discharge Date Admission Date: March 13, 2021 Subjective feels better, no BM, no fevers Physical Exam Gastrointestinal (Abdomen): Percussion/Palpation: + abdomen tender (mild LLQ) and abdomen soft Results & Data ([facility]) Vital Signs (Past 12 Hours) Vital Signs Temp Pulse Resp BP Pulse Ox 03/14/21 07:44 36.9 C 83 16 124/80 97 03/13/21 22:44 36.7 C 87 18 113/74 96 PG Care Time/CCT Total # of Minutes Spent Total Time Spent with Patient: Total time spent is greater than 50% in coordination of care (as documented) at patient's floor/unit and/or counseling patient: Coding Level of Care Code 48475 Subseq Hosp Care Lvl 2 Diagnoses Diverticulitis K57.92
--- NOTE | 2021-03-14 15:13 | Hospitalist Progress Note ---
Date of Service March 14, 2021 Assessment & Plan (1) Diverticulitis: CT a/p on 03/13 showed "severe focal inflammation of the proximal sigmoid colon with findings suggestive of acute diverticulitis." With a possible microperforation. - NPO except sips/meds - General surgery consulted - Pain and nausea control - Given penicillin allergy, will use Cipro/Flagyl for abx coverage - Improving today. Advanced diet to clears. (2) DVT prophylaxis: SCDs - Low DVT risk per admission calculator & holding heparin in case there is need for surgery Admission and Anticipated Discharge Date Admission Date: March 13, 2021 Subjective Some better. Passing gas, but no BM. Abdominal pain is back to being a "pressure." Reports no fevers/chills, chest pain, shortness of breath, nausea, or vomiting. Physical Exam Constitutional: WD/WN, vitals as above Eyes: EOM intact bilaterally; no conjunctival abnormality ENMT: external ear and nose normal, oropharynx normal Neck: trachea midline, no thyromegaly normal visual inspection Respiratory: normal respiratory effort, lungs clear to auscultation no respiratory distress Cardiovascular: RRR, no murmur, no edema Gastrointestinal (Abdomen): Inspection/Auscultation: abdomen normal to inspection and + hypoactive bowel sounds; abdomen not distended Percussion/Palpation: + abdomen tender (LLQ and suprapubic area) and abdomen soft; no guarding and abdomen not rigid Musculoskeletal: no cyanosis or clubbing, extremities motor strength 5/5 Skin: no rashes, warm and dry Neurologic: moves all extremities and awake Psychiatric: Orientation: alert, oriented to person and cooperative Results & Data Results & Data ([facility]) Vital Signs (Past 12 Hours) Vital Signs Temp Pulse Resp BP Pulse Ox 03/14/21 07:44 36.9 C 83 16 124/80 97 PG Care Time/CCT Total # of Minutes Spent Total Time Spent with Patient: Total time spent is greater than 50% in coordination of care (as documented) at patient's floor/unit and/or counseling patient: Coding Level of Care Code 17694 Subseq Hosp Care Lvl 2 Diagnoses Diverticulitis K57.92 DVT prophylaxis Z29.9
[2021-03-15] MEDS: metroNIDAZOLE 500 MG/100 ML BAG IV SCH (08:09)
--- NOTE | 2021-03-15 08:46 | Surgery Progress Note ---
Date of Service March 15, 2021 Assessment & Plan (1) Diverticulitis: Clinically improved. Will advance diet. No surgical indications. Recommend discharge later today. I would like to see her in the office in 1 to 2 weeks after discharge. Recommend colonoscopy which would be her first 1 in about 3 months. Admission and Anticipated Discharge Date Admission Date: March 13, 2021 Zaida Pelayo is doing much better and would like to go home. She has virtually no pain whatsoever at this point. She still only had liquids to eat. Physical Exam Constitutional: WD/WN, vitals as above no acute distress and not ill appearing Eyes: PERRL, conjunctivae normal, anicteric sclerae EOM intact bilaterally ENMT: external ear and nose normal, oropharynx normal Ears: no hearing impairment Neck: trachea midline, no thyromegaly Respiratory: normal respiratory effort; no respiratory distress and does not use accessory muscles Cardiovascular: Rate/Rhythm: regular rate and regular rhythm Gastrointestinal (Abdomen): Soft. Very minimal suprapubic tenderness. Much improved. No peritoneal signs Skin: no rashes, warm and dry Psychiatric: Orientation: alert, oriented x 3 and cooperative Results & Data ([facility]) Vital Signs (Past 12 Hours) Vital Signs Temp Pulse Resp BP Pulse Ox 03/15/21 07:24 36.6 C 69 16 123/83 96 03/14/21 22:53 36.5 C 70 18 111/79 97 PG Care Time/CCT Total # of Minutes Spent Total Time Spent with Patient: Total time spent is greater than 50% in coordination of care (as documented) at patient's floor/unit and/or counseling patient: Coding Level of Care Code 00026 Subseq Hosp Care Lvl 3 Diagnoses Diverticulitis K57.92
[2021-03-15] MEDS ORDERED: CIPROFLOXACIN 500 MG TAB PO STA (09:41)
--- NOTE | 2021-03-15 14:09 | Discharge Summary ---
Date of Service March 15, 2021 Admission HPI Per Admitting Provider 50yo F w/ no sig PMH who presents with diverticulitis. She had some mild abdominal pressure on Thursday that she associated with some weakness, but it resolved. Returned on Thursday again, but she was at work and it passed. Today, she had much more significant pain (7-8/10) in the suprapubic and LLQ with radiation upwards. She notes the pain was associated with a fever last night (100 degrees), HAYES, but no nausea or vomiting, no shortness of breath. The pain is worse with walking and movement. She has never had an episode of diverticulitis before and never had a colonoscopy. Principal Diagnosis Diverticulitis Discharge Exam Constitutional WD/WN, vitals as above Eyes EOM intact bilaterally; no conjunctival abnormality ENMT external ear and nose normal, oropharynx normal Neck trachea midline, no thyromegaly normal visual inspection Respiratory normal respiratory effort, lungs clear to auscultation no respiratory distress Cardiovascular RRR, no murmur, no edema Gastrointestinal (Abdomen) Inspection/Auscultation: abdomen normal to inspection and + hypoactive bowel sounds; abdomen not distended Percussion/Palpation: abdomen soft; abdomen nontender (LLQ and suprapubic area), no guarding and abdomen not rigid Musculoskeletal no cyanosis or clubbing, extremities motor strength 5/5 Skin no rashes, warm and dry Neurologic moves all extremities and awake Psychiatric Orientation: alert, oriented to person and cooperative Discharge Data Allergies Allergy/AdvReac Type Severity Reaction Status Date / Time Penicillins Allergy Severe THROAT Verified 03/13/21 07:45 SWELLING,RASH clarithromycin Allergy Intermediate RASH Verified 03/13/21 07:45 Sulfa (Sulfonamide Allergy Intermediate RASH Verified 03/13/21 07:45 Antibiotics) Consultations 03/13/21 08:59 ED Decision to Admit Stat 03/13/21 11:59 Consult General Surgery Routine Ordered Studies 03/13/21 06:36 CT abd pelvis IV con only Stat Hospital Course (1) Diverticulitis: CT a/p on 03/13 showed "severe focal inflammation of the proximal sigmoid colon with findings suggestive of acute diverticulitis." With a possible microperforation. - General surgery consulted - Given penicillin allergy, will use Cipro/Flagyl for abx coverage. Improved over 2 days. Discharged on PO of both to finish 10-day course. (End date: 03/23/2021) - Diet recs advised. Will follow up with surgery and [facility] (as she now has [employer] insurance). (2) DVT prophylaxis: SCDs - Low DVT risk per admission calculator & holding heparin in case there is need for surgery Total Time Total Time Spent Total Time Spent (In Minutes): 35 Discharge Plan Discharge Items Patient Disposition: Home - Self-Care Reason For Visit: DIVERTICULITIS Discharge Diagnosis: Diverticulitis Activity: Resume your previous activity Non-emergency contact: Primary Care Provider and Technical Director Call non-emergency contact if: your symptoms worsen and your temperature is above 101 Follow-up/Referrals: Santiago Way DO [Surgeon] - 04/03/21 9:30 am Bryan Garcia MD [Primary Care Provider] - Berto Orozco MD [Physician] - (Please call [facility] for an appointment to schedule a colonoscopy in 4-6 weeks.) Diet: Regular Addtl Attending Provider Instructions: Ms. Panchal, You were admitted to the hospital with diverticulitis which is inflammation/infection of a small out-pouching in the large intestine. With antibiotics you improved, and are ready to be discharged. Please take your next antibiotic doses tonight before bedtime. You will need to be on the antibiotic for [address] more [address] Please see Dr[address] Way in the clinic in a few weeks. You will need to see a [facility] doctor to get a colonoscopy in 4 - 6 weeks. Pending Studies at Discharge: No Stand-Alone Forms: My [facility] [employer], Smoking Cessation Medications and DC Order Prescriptions: New metronidazole 500 mg tablet 500 mg PO Q8H Qty: 24 RF: 0 ciprofloxacin HCl 500 mg tablet 500 mg PO BID Qty: 16 RF: 0 Continued azelastine 205.5 mcg (0.15 %) spray,non-aerosol 2 spray INTRANASAL DAILY RF: 0 Discharge Orders: Discharge Order (Routine); Ordered 03/15/21 Ordered By: Johan Delgadillo/Other Patient Handouts: Discharge Instructions for ..., ED Diverticulitis Admission Data Admit Date/Time: 03/13/21 09:03 Attending Provider: Johan Bejarano Admit Provider: Johan Bejarano Primary Care Provider: Bryan Garcia Other Providers: Johan Bejarano ; Santiago Way Other Interventions: Discharge Summary Assessment (RN) Last Done: 03/15/21 09:41 Coding Level of Care Code D/C Day Management >30 mins Diagnoses Diverticulitis K57.92 DVT prophylaxis Z29.9
== END 2021-03-15 11:14 | disposition home or self-care (01) | DRG 392 ==
LOC: ED 06:02 → 3W 09:03

== ENCOUNTER 2022-03-19 09:44 | Inpatient (IN) ==
[2022-03-19] MEDS ORDERED: SODIUM CHLORIDE 0.9% 1000ML 2,000 ML IV ONE (10:02)
[2022-03-19] MEDS ORDERED: KETOROLAC TROMETHAMINE 15 MG/ML VIAL IV STA (10:02)
[2022-03-19] MEDS ORDERED: ACETAMINOPHEN 1,000 MG/100 ML VIAL IV STA (10:02)
[2022-03-19 11:07] LABS: Albumin Globulin Ratio 1.2 (0.9-2); Albumin Level 4.2 gm/dl (3.4-5.0); BUN Creatinine Ratio 6.7 (10-20); Bilirubin,Total 0.4 mg/dl (0.2-1.0); Calcium 9.3 mg/dl (8.5-10.1); Creatinine Clr Calc Pharmacy 98.1 ml/min; Est GFR (African American) 106.2 ml/min; Est GFR (Non-African American) 91.6 ml/min; Globulin 3.4 gm/dl (2.5-4.0); Potassium 3.5 mmol/L (3.5-5.1); Total Protein 7.6 gm/dl (6.0-8.3)
[2022-03-19 11:18] LABS: Pregnancy Test, Serum Negative (Negative)
[2022-03-19 11:35] LABS: Procalcitonin 1.93 ng/ml (0-0.5)
[2022-03-19 12:12] LABS: Appearance Urine Clear (Clear); Bilirubin Urine Negative (Negative); Blood Urine Negative (Negative); Color Urine Yellow; Glucose Urine UA Negative (Negative); Ketones Urine Negative (Negative); Leukocyte Esterase Urine Negative (Negative); Nitrite Urine Negative (Negative); Protein Urine Negative (Negative); Specific Gravity Urine 1.004 (1.000-1.030); Urobilinogen Urine Negative (Negative)
[2022-03-19 12:21] LABS: Hematocrit (blood only) 41.7 % (37-47); Hemoglobin 14.3 g/dL (12.0-16.0); Mean Corpuscular Hemoglobin 28.9 pg (25-34); Mean Corpuscular Hgb Conc 34.3 g/dL (32-36); Mean Corpuscular Volume 84.4 fL (80-100); Mean Platelet Volume 9.9 fL (7.4-10.4); Platelet Count 160 K/uL (130-400); RDW Coefficient of Variation 13.6 % (11.5-14.5); RDW Standard Deviation 42.2 fL (36.4-46.3); Red Blood Count 4.94 M/uL (4.2-5.4); White Blood Count 6.29 K/uL (4.8-10.8)
[2022-03-19 12:23] LABS: ALC (manual) 2.81 K/uL (1.2-3.4); ANC (manual) 2.41 K/uL (1.4-6.5); Eosinophils # (manual) 0.34 K/uL (0-0.5); Eosinophils % (manual) 5.4 %; Lymphocytes # (manual) 1.69 K/uL (1.2-3.4); Lymphocytes % (manual) 26.8 %; Metamyelocytes # (manual) 0.06 K/uL (0-0); Metamyelocytes % (manual) 0.9 %; Monocytes # (manual) 0.67 K/uL (0.11-0.59); Monocytes % (manual) 10.7 %; Neutrophils # (manual) 2.41 K/uL (1.4-6.5); Neutrophils % (manual) 38.3 %; Plasma Cells # (manual) 0.17 K/uL (0-0); Plasma Cells % (manual) 2.7 %; Platelet Estimate Normal (Normal); Reactive Lymphocytes # (manual) 0.96 K/uL; Reactive Lymphocytes % (manual) 15.2 %
[2022-03-19] MEDS ORDERED: OPTIRAY 320 100ml IV ONE (13:31)
[2022-03-19 13:37] LABS: Influenza A virus by PCR Negative (Neg); Influenza B virus by PCR Negative (Neg); RSV by PCR Negative (Neg)
[2022-03-19 13:40] LABS: SARS CoV2 RNA(COVID-19) InHosp POSITIVE (Negative)
--- NOTE | 2022-03-19 14:06 | CT Scan Report ---
CT abd pelvis IV con only CLINICAL HISTORY: LLQ abd pain, fevers, re-eval diverticulitis TECHNIQUE: Helical axial images of the abdomen and pelvis were obtained and displayed. Automated dose lowering techniques and/or adjustment according to patient size were utilized for this exam. This e xam was performed with intravenous contrast. COMPARISON: Comparison is made to CT abdomen pelvis 03/14/2022 FINDINGS: Lower chest: Groundglass opacities are seen in the bilateral lung bases. Liver: Unremarkable. No focal lesions are seen. Gallbladder and biliary tree: No calcified gallstones. Normal caliber wall. No intra- or extrahepatic biliary ductal dilation. Pancreas: Unremarkable, no focal lesions. Spleen: Unremarkable. Adrenals: Unremarkable. Kidneys and ureters: Subcentimeter hypodensities are too small to characterize. Bladder: Unremarkable. Reproductive organs: Unremarkable. Bowel: Sigmoid colonic wall thickening and surrounding fat stranding is seen. There is a tiny focus o f extraluminal air. Lymph nodes Retroperitoneal: Unremarkable. Mesenteric: Unremarkable. Pelvic: Unremarkable. Peritoneum: Normal. Vessels: Fat stranding is seen in the right lower quadrant. Abdominal wall: A fat-containing umbilical hernia is seen. Bones: Degenerative changes in the visualized spine. IMPRESSION: Redemonstration of sigmoid diverticulitis. In the interval, there is development of extraluminal gas suggesting a perforation. No abscess formation is seen. ACT 112: Negative or not required by law. Electronically signed by: Teja Alvarado M.D. 03/19/2022 2:05 PM
[2022-03-19] MEDS ORDERED: ERTAPENEM SODIUM 10 ML IV STA (14:55)
--- NOTE | 2022-03-19 15:18 | Emergency Department Note ---
Impression & Plan Diverticulitis of colon with perforation, Left lower quadrant abdominal pain, Lab test positive for detection of COVID-19 virus ED Provider Note NAME: DANIS ORTIZ AGE: 51 SEX: F ARRIVES VIA: Walk-In INFORMANT: Patient. ED PROVIDER(S): Petar Hudson MD CHIEF COMPLAINT: Abdominal pain, diverticulitis, referred. PLAN: Disposition: Admit MEDICAL DECISION MAKING: The patient is a pleasant 51-year-old woman with a past medical history of diver ticulitis, C. difficile who presents to the emergency department for from her PCPs office for fevers and continued left lower quadrant abdominal pain in setting being diagnosed with diverticulitis on 03/[address] scan in the emergency department, subsequently treated with moxifloxacin through pcp. Patient reports having fevers yesterday and today. She reports intermittent nausea but denies nausea at this time. She reports she has been having loose stools anytime she eats anything since starting the antibiotic but feels confident it is not C. difficile. She denies chest pain, shortness of breath. On arrival the patient is uncomfortable no distress, afebrile stable vital signs. She appears clinically dry. She has mild left lower quadrant tenderness without guarding or rebound. WBC, H/H and platelets within normal limits. Chemistry without metabolic acidosis. Electrolytes and LFTs unremarkable. Lactic acid 0.7, within normal limits. Procalcitonin is elevated at 1.93, nonspecific. UA without convincing evidence of infection. Of note, the patient's COVID-19 PCR was positive however the patient did have COVID-19 in November and so suspect represents non- replicating virus. CT of the abdomen pelvis demonstrates the patient's known diverticulitis however with extraluminal gas which suggests microperforation. Patient does have numerous antibiotic allergies/intolerances. Treatment initiated with IV ertapenem at this time. Case was discussed with Dr. Jamar Mclean hospitalist, who will evaluate the patient for admission. Triage Nursing notes reviewed and agree them. Prior medical records reviewed Vital Signs: reviewed and remarkable for no significant abnormalities Differential diagnosis: Appendicitis, ovarian cyst, ovarian torsion, ectopic , TOA, PID, infections, diverticulitis, UTI, obstruction, mesenteric ischemia, aortic pathology, inflammatory bowel disease, renal colic, PUD, pancreatitis, biliary pathology, hernia, volvulus, constipation, as well as other pathologies. ER treatment provided: See below. Diagnostics interpreted by me: Cardiac Monitoring: An order for continuous cardiac monitoring was placed and demonstrated NSR, 77 bpm, no ectopy. Laboratory studies: See below Imaging studies: See below Consultation(s): Case was discussed with Dr. Roldan, [facility] hospitalist, who will evaluate the patient for admission. HPI: The patient is a pleasant 51-year-old woman with a past medical history of diverticulitis, C. difficile who presents to the emergency department for from her PCPs office for fevers and continued left lower quadrant abdominal pain in setting being diagnosed with diverticulitis on 03/[address] scan in the emergency department, subsequently treated with moxifloxacin through pcp. Patient reports having fevers yesterday and today. She reports intermittent nausea but denies nausea at this time. She reports she has been having loose stools anytime she eats anything since starting the antibiotic but feels confident it is not C. difficile. She denies chest pain, shortness of breath. ROS: See above HPI for pertinent positives & negatives. A total of 10 systems reviewed and were otherwise negative. VITALS:See Below PHYSICAL EXAMINATION: GENERAL: Awake, alert, uncomfortable-appearing, in no distress HENT: Normocephalic, atraumatic. Oropharynx with dry mucous membranes and o therwise unremarkable. EYES: Normal conjunctiva. Sclera non-icteric. NECK: Supple. No nuchal rigidity. FROM. No JVD. RESPIRATORY: Clear to auscultation. CARDIAC: Regular rate, normal rhythm. Extremities warm and well perfused. Pulses equal. ABDOMEN: Soft, non-distended. Mild LLQ quadrant tenderness to palpation. No rebound or guarding. No masses. RECTAL: Deferred. MUSCULOSKELETAL: Chest examination reveals no tenderness. The back is symmetrical on inspection without obvious abnormality. There is no CVA tenderness to palpation. No joint edema. LOWER EXTREMITIES: Calves are equal size bilaterally and non-tender. No edema. No discoloration. NEURO: Normal sensorium. No sensory or motor deficits noted. SKIN: No rash or jaundice noted. Petar Hudson MD Past Med/Surg History Medical History Clostridioides difficile infection (04/15/21) Positive for C. difficile toxin B gene DNA by PCR (Amplified Probe). Presumptive negative for C. difficile [id number] strain by PCR (Amplified Probe). Tx by PCP/GI Vancomycin 125 mg orally 4 times daily for 10 days Cyst of right breast Diverticulitis Leiomyoma of uterus S/p hysterectomy ~2014. 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 at [employer] How many Children do You have: 2 How many Children do You have Comment: 2 grandkids Feels Safe at Home: Yes Assistive Devices: None Allergies Allergies Allergy/AdvReac Type Severity Reaction Status Date / Time Penicillins Allergy Severe THROAT Verified 03/19/22 12:53 SWELLING,RASH clarithromycin Allergy Intermediate RASH Verified 03/19/22 12:53 Sulfa (Sulfonamide Allergy Intermediate RASH Verified 03/19/22 12:53 Antibiotics) Home Meds Home Medications Medication Instructions Recorded Confirmed azelastine 205.5 mcg (0.15 %) 2 spray INTRANASAL DAILY PRN 03/13/21 03/19/22 nasal spray loratadine 10 mg tablet (Claritin) 10 mg PO DAILY PRN 03/14/22 03/19/22 Saccharomyces boulardii 50 mg 0 mg PO DAILY 03/19/22 03/19/22 capsule moxifloxacin 400 mg tablet 400 mg PO DAILY 03/19/22 03/19/22 ondansetron HCl 4 mg tablet 4 mg PO Q6 PRN 03/19/22 03/19/22 vancomycin 125 mg capsule 125 mg PO DAILY 03/19/22 03/19/22 Previous Rx's Medication Instructions Recorded ketorolac 10 mg tablet 10 mg PO Q6H PRN #20 tab 03/14/22 Results & Data (ED) Vital Signs Vital Signs - 24 hr 03/19/22 09:47 03/19/22 13:45 03/19/22 15:00 Temperature 36.8 C 36.6 C 36.8 C Temperature Source Oral Oral Oral Pulse Rate 77 Respiratory Rate 16 18 18 Respiratory Effort / Characteristics Non-Labored Respiratory Depth Normal Blood Pressure 143/90 H Blood Pressure [Left Arm] 119/84 127/85 Blood Pressure Mean 107 Blood Pressure Mean [Left Arm] 95 99 Pulse Oximetry 99 99 99 Oxygen Delivery Method Room Air Room Air Room Air Sepsis Recent Fever Within 48 Hours No Sepsis New/Unexplained Change in Mental Status No Sepsis Action Taken by Nursing No Action Required Laboratory Data Result diagrams: 03/19/22 11:10 03/19/22 10:23 Lab Results 03/19/22 03/19/22 03/19/22 Range/Units 10:23 10:23 10:23 WBC Cancelled RBC Cancelled Hgb Cancelled Hct Cancelled MCV Cancelled MCH Cancelled MCHC Cancelled RDW Std Deviation Cancelled RDW Coeff of Sam Cancelled Plt Count Cancelled MPV Cancelled Immature Gran % (Auto) Cancelled Neut % (Auto) Cancelled Lymph % (Auto) Cancelled Angelina % (Auto) Cancelled Eos % (Auto) Cancelled Baso % (Auto) Cancelled Neut # (Auto) Cancelled Lymph # (Auto) Cancelled Angelina # (Auto) Cancelled Eos # (Auto) Cancelled Baso # (Auto) Cancelled Immature Gran # (Auto) Cancelled Absolute Nucleated RBC Cancelled Nucleated RBC % (auto) Cancelled Neutrophils % (Manual) Cancelled Band Neutrophils % Cancelled Lymphocytes % (Manual) Cancelled Prolymphocyte % Cancelled Reactive Lymphs % (Man) Cancelled Monocytes % (Manual) Cancelled Eosinophils % (Manual) Cancelled Basophils % (Manual) Cancelled Metamyelocytes % (Man) Cancelled Myelocytes % (Man) Cancelled Promyelocytes % (Man) Cancelled Blast Cells % (Manual) Cancelled Plasma Cell % (Manual) Cancelled Other Cells % Cancelled Nucleated RBC % Cancelled Neutrophils # (Manual) Cancelled Band Neutrophils # Cancelled Total Absolute Neuts Cancelled Lymphocytes # (Manual) Cancelled Prolymphocyte # Cancelled Reactive Lymphs # Cancelled Total Abs Lymphocytes Cancelled Monocytes # (Manual) Cancelled Eosinophils # (Manual) Cancelled Basophils # (Manual) Cancelled Metamyelocytes # (Man) Cancelled Myelocytes # (Manual) Cancelled Promyelocytes # (Man) Cancelled Blast Cells # (Man) Cancelled Plasma Cell # (Manual) Cancelled Other Cells # Cancelled Nucleated RBCs # (Man) Cancelled Hypersegmented Neuts Cancelled Hyposegmented Neuts Cancelled Hypogranular Neuts Cancelled Large Granular Lymphs Cancelled # Lrg Granular Lymphs Cancelled Hairy Cells Cancelled Smudge Cells Cancelled Blood Smear Review Toxic Granulation Cancelled Toxic Vacuolation Cancelled Dohle Bodies Cancelled Radha Rods Cancelled Platelet Estimate Cancelled Hypogranular Platelets Cancelled Clumped Platelets Cancelled Giant Platelets Cancelled Platelet Satelliting Cancelled RBC Morphology Cancelled Polychromasia Cancelled Hypochromasia Cancelled Poikilocytosis Cancelled Basophilic Stippling Cancelled Anisocytosis Cancelled Microcytosis Cancelled Macrocytosis Cancelled Spherocytes Cancelled Pappenheimer Bodies Cancelled Sickle Cells Cancelled Target Cells Cancelled Tear Drop Cells Cancelled Ovalocytes Cancelled Stomatocytes Cancelled Torres-Shallotte Bodies Cancelled Echinocytes Cancelled Acanthocytes (Spur) Cancelled Rouleaux Cancelled RBC Agglutinates Cancelled Schistocytes Cancelled RBC Morph Comment Cancelled Sezary Cell Cancelled Sodium 143 (136-145) mmol/L Potassium 3.5 (3.5-5.1) mmol/L Chloride 109 H (98-107) mmol/L Carbon Dioxide 25 (21-32) mmol/L Anion Gap 9 (3-11) BUN 5 L (6-23) mg/dl Creatinine 0.75 (0.6-1.2) mg/dl Est Cr Clr Drug Dosing 98.1 ml/min Est GFR ( Amer) 106.2 ml/min Est GFR (Non-Af Amer) 91.6 ml/min BUN/Creatinine Ratio 6.7 L (10-20) Glucose 86 (70-99(Fasting)) mg/dl Lactate (0.4-2.0) mmol/L Calcium 9.3 (8.5-10.1) mg/dl Total Bilirubin 0.4 (0.2-1.0) mg/dl AST 17 (13-39) U/L ALT 24 (7-52) U/L Alkaline Phosphatase 95 (34-104) U/L Total Protein 7.6 (6.0-8.3) gm/dl Albumin 4.2 (3.4-5.0) gm/dl Globulin 3.4 (2.5-4.0) gm/dl Albumin/Globulin Ratio 1.2 (0.9-2) Lipase 6 L (11-82) U/L Procalcitonin 1.93 H (0-0.5) ng/ml HCG, Qual Negative (Negative) Urine Color Urine Appearance (Clear) Urine pH (4.5-7.5) Ur Specific [place] (1.000-1.030) Urine Protein (Negative) Urine Glucose (UA) (Negative) Urine Ketones (Negative) Urine Blood (Negative) Urine Nitrite (Negative) Urine Bilirubin (Negative) Urine Urobilinogen (Negative) Ur Leukocyte Esterase (Negative) SARS-CoV-2 (PCR) (Negative) Influenza Type A (PCR) (Neg) Influenza Type B (PCR) (Neg) RSV (RT-PCR) (Neg) 03/19/22 03/19/22 03/19/22 Range/Units 11:10 11:10 11:29 WBC 6.29 RBC 4.94 Hgb 14.3 Hct 41.7 MCV 84.4 MCH 28.9 MCHC 34.3 RDW Std Deviation 42.2 RDW Coeff of Sam 13.6 Plt Count 160 MPV 9.9 Immature Gran % (Auto) Neut % (Auto) Lymph % (Auto) Angelina % (Auto) Eos % (Auto) Baso % (Auto) Neut # (Auto) Lymph # (Auto) Angelina # (Auto) Eos # (Auto) Baso # (Auto) Immature Gran # (Auto) Absolute Nucleated RBC Nucleated RBC % (auto) Neutrophils % (Manual) 38.3 Band Neutrophils % Lymphocytes % (Manual) 26.8 Prolymphocyte % Reactive Lymphs % (Man) 15.2 Monocytes % (Manual) 10.7 Eosinophils % (Manual) 5.4 Basophils % (Manual) Metamyelocytes % (Man) 0.9 Myelocytes % (Man) Promyelocytes % (Man) Blast Cells % (Manual) Plasma Cell % (Manual) 2.7 Other Cells % Nucleated RBC % Neutrophils # (Manual) 2.41 Band Neutrophils # Total Absolute Neuts 2.41 Lymphocytes # (Manual) 1.69 Prolymphocyte # Reactive Lymphs # 0.96 Total Abs Lymphocytes 2.81 Monocytes # (Manual) 0.67 H Eosinophils # (Manual) 0.34 Basophils # (Manual) Metamyelocytes # (Man) 0.06 H Myelocytes # (Manual) Promyelocytes # (Man) Blast Cells # (Man) Plasma Cell # (Manual) 0.17 H Other Cells # Nucleated RBCs # (Man) Hypersegmented Neuts Hyposegmented Neuts Hypogranular Neuts Large Granular Lymphs # Lrg Granular Lymphs Hairy Cells Smudge Cells Blood Smear Review Toxic Granulation Toxic Vacuolation Dohle Bodies Radha Rods Platelet Estimate Normal Hypogranular Platelets Clumped Platelets Giant Platelets Platelet Satelliting RBC Morphology Polychromasia Hypochromasia Poikilocytosis Basophilic Stippling Anisocytosis Microcytosis Macrocytosis Spherocytes Pappenheimer Bodies Sickle Cells Target Cells Tear Drop Cells Ovalocytes Stomatocytes Torres-Shallotte Bodies Echinocytes Acanthocytes (Spur) Rouleaux RBC Agglutinates Schistocytes RBC Morph Comment Sezary Cell Sodium (136-145) mmol/L Potassium (3.5-5.1) mmol/L Chloride (98-107) mmol/L Carbon Dioxide (21-32) mmol/L Anion Gap (3-11) BUN (6-23) mg/dl Creatinine (0.6-1.2) mg/dl Est Cr Clr Drug Dosing ml/min Est GFR ( Amer) ml/min Est GFR (Non-Af Amer) ml/min BUN/Creatinine Ratio (10-20) Glucose (70-99(Fasting)) mg/dl Lactate 0.7 (0.4-2.0) mmol/L Calcium (8.5-10.1) mg/dl Total Bilirubin (0.2-1.0) mg/dl AST (13-39) U/L ALT (7-52) U/L Alkaline Phosphatase (34-104) U/L Total Protein (6.0-8.3) gm/dl Albumin (3.4-5.0) gm/dl Globulin (2.5-4.0) gm/dl Albumin/Globulin Ratio (0.9-2) Lipase (11-82) U/L Procalcitonin (0-0.5) ng/ml HCG, Qual (Negative) Urine Color Urine Appearance (Clear) Urine pH (4.5-7.5) Ur Specific [place] (1.000-1.030) Urine Protein (Negative) Urine Glucose (UA) (Negative) Urine Ketones (Negative) Urine Blood (Negative) Urine Nitrite (Negative) Urine Bilirubin (Negative) Urine Urobilinogen (Negative) Ur Leukocyte Esterase (Negative) SARS-CoV-2 (PCR) POSITIVE A* (Negative) Influenza Type A (PCR) Negative (Neg) Influenza Type B (PCR) Negative (Neg) RSV (RT-PCR) Negative (Neg) 03/19/22 Range/Units 11:38 WBC RBC Hgb Hct MCV MCH MCHC RDW Std Deviation RDW Coeff of Sam Plt Count MPV Immature Gran % (Auto) Neut % (Auto) Lymph % (Auto) Angelina % (Auto) Eos % (Auto) Baso % (Auto) Neut # (Auto) Lymph # (Auto) Angelina # (Auto) Eos # (Auto) Baso # (Auto) Immature Gran # (Auto) Absolute Nucleated RBC Nucleated RBC % (auto) Neutrophils % (Manual) Band Neutrophils % Lymphocytes % (Manual) Prolymphocyte % Reactive Lymphs % (Man) Monocytes % (Manual) Eosinophils % (Manual) Basophils % (Manual) Metamyelocytes % (Man) Myelocytes % (Man) Promyelocytes % (Man) Blast Cells % (Manual) Plasma Cell % (Manual) Other Cells % Nucleated RBC % Neutrophils # (Manual) Band Neutrophils # Total Absolute Neuts Lymphocytes # (Manual) Prolymphocyte # Reactive Lymphs # Total Abs Lymphocytes Monocytes # (Manual) Eosinophils # (Manual) Basophils # (Manual) Metamyelocytes # (Man) Myelocytes # (Manual) Promyelocytes # (Man) Blast Cells # (Man) Plasma Cell # (Manual) Other Cells # Nucleated RBCs # (Man) Hypersegmented Neuts Hyposegmented Neuts Hypogranular Neuts Large Granular Lymphs # Lrg Granular Lymphs Hairy Cells Smudge Cells Blood Smear Review Toxic Granulation Toxic Vacuolation Dohle Bodies Radha Rods Platelet Estimate Hypogranular Platelets Clumped Platelets Giant Platelets Platelet Satelliting RBC Morphology Polychromasia Hypochromasia Poikilocytosis Basophilic Stippling Anisocytosis Microcytosis Macrocytosis Spherocytes Pappenheimer Bodies Sickle Cells Target Cells Tear Drop Cells Ovalocytes Stomatocytes Torres-Shallotte Bodies Echinocytes Acanthocytes (Spur) Rouleaux RBC Agglutinates Schistocytes RBC Morph Comment Sezary Cell Sodium (136-145) mmol/L Potassium (3.5-5.1) mmol/L Chloride (98-107) mmol/L Carbon Dioxide (21-32) mmol/L Anion Gap (3-11) BUN (6-23) mg/dl Creatinine (0.6-1.2) mg/dl Est Cr Clr Drug Dosing ml/min Est GFR ( Amer) ml/min Est GFR (Non-Af Amer) ml/min BUN/Creatinine Ratio (10-20) Glucose (70-99(Fasting)) mg/dl Lactate (0.4-2.0) mmol/L Calcium (8.5-10.1) mg/dl Total Bilirubin (0.2-1.0) mg/dl AST (13-39) U/L ALT (7-52) U/L Alkaline Phosphatase (34-104) U/L Total Protein (6.0-8.3) gm/dl Albumin (3.4-5.0) gm/dl Globulin (2.5-4.0) gm/dl Albumin/Globulin Ratio (0.9-2) Lipase (11-82) U/L Procalcitonin (0-0.5) ng/ml HCG, Qual (Negative) Urine Color Yellow Urine Appearance Clear (Clear) Urine pH 7.0 (4.5-7.5) Ur Specific [place] 1.004 (1.000-1.030) Urine Protein Negative (Negative) Urine Glucose (UA) Negative (Negative) Urine Ketones Negative (Negative) Urine Blood Negative (Negative) Urine Nitrite Negative (Negative) Urine Bilirubin Negative (Negative) Urine Urobilinogen Negative (Negative) Ur Leukocyte Esterase Negative (Negative) SARS-CoV-2 (PCR) (Negative) Influenza Type A (PCR) (Neg) Influenza Type B (PCR) (Neg) RSV (RT-PCR) (Neg) Administered Medications Discontinued Medications Sodium Chloride (Nss 1000ml) 2,000 mls @ 999 mls/hr IV .Q2H1M ONE Stop: 03/19/22 12:02 Last Infusion: 03/19/22 14:40 Dose: 0 mls/hr Documented by: [id number] Admin: 04/20/22 10:48 Dose: 999 mls/hr Documented by: [id number] Acetaminophen (Ofirmev) 1,000 mg in 100 mls @ 400 mls/hr IV NOW STA Stop: 03/19/22 10:16 Last Infusion: 03/19/22 11:28 Dose: 0 mls/hr Documented by: [id number] Admin: 03/19/22 10:48 Dose: 400 mls/hr Documented by: [id number] Ertapenem (Invanz) 10 mls @ 2 mls/min IV NOW STA Stop: 03/19/22 14:59 Last Admin: 03/19/22 15:16 Dose: 2 mls/min Documented by: [id number] Ioversol (Optiray 320 100ml) 94 ml IV ONCE ONE Stop: 03/19/22 13:32 Last Admin: 03/19/22 13:31 Dose: 94 ml Documented by: [id number] Ketorolac Tromethamine (Ketorolac Tromethamine 15 Mg/Ml Vial) 15 mg IV NOW STA Stop: 03/19/22 10:03 Last Admin: 03/19/22 10:48 Dose: 15 mg Documented by: [id number] Imaging Data Radiologist's Impression: Abdomen/Pelvis CT 03/19/22 10:02 CT abd pelvis IV con only CLINICAL HISTORY: LLQ abd pain, fevers, re-eval diverticulitis TECHNIQUE: Helical axial images of the abdomen and pelvis were obtained and displayed. Automated dose lowering techniques and/or adjustment according to patient size were utilized for this exam. This exam was performed with intravenous contrast. COMPARISON: Comparison is made to CT abdomen pelvis 03/14/2022 FINDINGS: Lower chest: Groundglass opacities are seen in the bilateral lung bases. Liver: Unremarkable. No focal lesions are seen. Gallbladder and biliary tree: No calcified gallstones. Normal caliber wall. No intra- or extrahepatic biliary ductal dilation. Pancreas: Unremarkable, no focal lesions. Spleen: Unremarkable. Adrenals: Unremarkable. Kidneys and ureters: Subcentimeter hypodensities are too small to characterize. Bladder: Unremarkable. Reproductive organs: Unremarkable. Bowel: Sigmoid colonic wall thickening and surrounding fat stranding is seen. There is a tiny focus of extraluminal air. Lymph nodes Retroperitoneal: Unremarkable. Mesenteric: Unremarkable. Pelvic: Unremarkable. Peritoneum: Normal. Vessels: Fat stranding is seen in the right lower quadrant. Abdominal wall: A fat-containing umbilical hernia is seen. Bones: Degenerative changes in the visualized spine. IMPRESSION: Redemonstration of sigmoid diverticulitis. In the interval, there is development of extraluminal gas suggesting a perforation. No abscess formation is seen. ACT 112: Negative or not required by law. Electronically signed by: Teja Alvarado M.D. 03/19/2022 2:05 PM Discharge Plan Visit Data Chief Complaint: Abdominal Pain Stated Complaint: DIVERTICULITIS, ABDOMINAL PAIN ED Provider: Petar Hudson Discharge Problem: Diverticulitis of colon with perforation, Left lower quadrant abdominal pain, Lab test positive for detection of COVID-19 virus Forms Stand Alone Forms: [facility] [employer] Prescriptions Prescriptions: No Action azelastine 205.5 mcg (0.15 %) spray,non-aerosol 2 spray INTRANASAL DAILY PRN (Reason: ALLERGIES) RF: 0 loratadine [Claritin] 10 mg Tablet 10 mg PO DAILY PRN (Reason: Congestion) RF: 0 ketorolac 10 mg tablet 10 mg PO Q6H PRN (Reason: pain) Qty: 20 RF: 1 ondansetron HCl 4 mg tablet 4 mg PO Q6 PRN (Reason: Nausea) RF: 0 moxifloxacin 400 mg tablet 400 mg PO DAILY RF: 0 vancomycin 125 mg capsule 125 mg PO DAILY RF: 0 Florastor 50 mg Capsule 0 mg PO DAILY RF: 0 Referrals Referrals: Lacy Rosa MD [Primary Care Provider] -
--- NOTE | 2022-03-19 16:39 | History & Physical Report ---
Date of Service March 19, 2022 Assessment & Plan (1) Diverticulitis: Plan: Persistent acute sigmoid diverticulitis with new development of perforation without abscess. No evidence of sepsis. Cont ertapenem started in ER. Cont vancomycin PO daily with h/o c-diff infection, and consult general surgery. Some loose stools noted over the weekend, especially when she ate something. (2) History of Clostridioides difficile infection: Plan: cont with daily vancomycin while on antibiotics. If she develops >3 loose watery stools daily would consider retesting for c-diff. 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 She has had this ongoing for the last few days and these are now improving. At this point, it would not be appropriate to given Valtrex. (4) COVID: Plan: New hoarseness and nosebleeds in the last couple of days. No known exposures to sick people with COVID. Although she had COVID in Dec 21, this may be a reinfection from a variant strain with dominant variant now BA-2 in the community, different from Dec 21 time period. Cont isolation and discuss further with infection control. No indication for covid-specific therapies. (5) DVT prophylaxis: Plan: Lovenox Full Code Dispo-to floor. Amy Roldan DO [facility] Hospitalist History of Present Illness Chief Complaint: fever, abdominal pain Primary Care Provider: Lacy Rosa MD 51 yo F with a history of c-difficile infection on vancomycin taper presents with persistent abdominal pain, fever after diagnosis and treatment of acute diverticulitis. She presented to the ER on 03/14 for LLQ pain. A CT at that time was performed revealing acute sigmoid diverticulitis and she was given IV cipro, PO flagyl, IV saline and IV toradol. She did a telemedicine visit with her PCP, Dr. Rosa while in the ER and was started on moxifloxacin and once daily vancomycin with her h/o c-diff and was sent home. She presents today with persistent, worsening symptoms. Repeat CT scan with IV contrast today reveals persistent sigmoid diverticulitis with interval development of extraluminal gas suggesting a performation. No abscess formation is seen. ROS reveals nosebleeds despite stopping her nasal sprays. Diarrhea she reports is "not -diff diarrhea" that occurred over the weekend. Persistent fevers nightly with the last yesterday. Also gets chills, and will break and become diaphoretic. She is persistently positive for COVID after having it in Dec 21. She has a new left lower mouth sore, as well. Allergies Allergy/AdvReac Type Severity Reaction Status Date / Time Penicillins Allergy Severe THROAT Verified 03/19/22 12:53 SWELLING,RASH clarithromycin Allergy Intermediate RASH Verified 03/19/22 12:53 Sulfa (Sulfonamide Allergy Intermediate RASH Verified 03/19/22 12:53 Antibiotics) Home Medications Medication Instructions Recorded Confirmed Type azelastine 205.5 mcg (0.15 %) 2 spray INTRANASAL DAILY PRN 03/13/21 03/19/22 History nasal spray ketorolac 10 mg tablet 10 mg PO Q6H PRN #20 tab 03/14/22 03/19/22 Rx loratadine 10 mg tablet (Claritin) 10 mg PO DAILY PRN 03/14/22 03/19/22 History Saccharomyces boulardii 50 mg 0 mg PO DAILY 03/19/22 03/19/22 History capsule moxifloxacin 400 mg tablet 400 mg PO DAILY 03/19/22 03/19/22 History ondansetron HCl 4 mg tablet 4 mg PO Q6 PRN 03/19/22 03/19/22 History vancomycin 125 mg capsule 125 mg PO DAILY 03/19/22 03/19/22 History Past Med/Surg History Medical History Clostridioides difficile infection (04/15/21) Positive for C. difficile toxin B gene DNA by PCR (Amplified Probe). Presumptive negative for C. difficile 027-NAP1-B1 strain by PCR (Amplified Probe). Tx by PCP/GI Vancomycin 125 mg orally 4 times daily for 10 days Cyst of right breast Diverticulitis Leiomyoma of uterus S/p hysterectomy ~2014. 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 Physical Exam Physical Exam: CONSTITUTIONAL: WNWD, vitals as above, generally well- appearing, NAD EYES: PERRL, normal conjuctivae, no scleral icterus ENT: external ear and nose normal, oropharynx clear, no TM abnormality, no maxillary or ethmoid sinus tenderness NECK: trachea midline, no lymphadenopathy RESPIRATORY: clear to auscultation bilaterally, no crackles, rales or wheezes, normal respiratory effort CARDIOVASCULAR: regular rate and rhythm, S1 and 2 heard without murmurs, gallops or rubs, no JVD, no peripheral edema CHEST: inspection of chest was normal GASTROINTESTINAL: soft, nontender, no guarding, nondistended MUSCULOSKELETAL: strength 5/5 throughout, head is normocephalic and atraumatic, neck supple SKIN: warm and dry NEUROLOGIC: CN 2-12 grossly intact, no sensory deficit, normal cognition, normal speech PSYCHIATRIC: alert cooperative and oriented to person, place and time. Results & Data Results & Data ([facility]) Vital Signs (Past 12 Hours) Vital Signs Temp Pulse Resp BP BP Pulse Ox 03/19/22 15:00 36.8 C 18 127/85 99 03/19/22 13:45 36.6 C 18 119/84 99 03/19/22 09:47 36.8 C 77 16 143/90 H 99 Laboratory Results Short CBC 03/19/22 03/19/22 Range/Units 10:23 11:10 WBC Cancelled 6.29 Hgb Cancelled 14.3 Hct Cancelled 41.7 Plt Count Cancelled 160 BMP 03/19/22 10:23 Sodium 143 Potassium 3.5 Chloride 109 H Carbon Dioxide 25 BUN 5 L Creatinine 0.75 Glucose 86 Calcium 9.3 Liver Function 03/19/22 Range/Units 10:23 Total Bilirubin 0.4 (0.2-1.0) mg/dl AST 17 (13-39) U/L ALT 24 (7-52) U/L Alkaline Phosphatase 95 (34-104) U/L Albumin 4.2 (3.4-5.0) gm/dl Urine 03/19/22 Range/Units 11:38 Urine Color Yellow Urine Appearance Clear (Clear) Urine pH 7.0 (4.5-7.5) Ur Specific [place] 1.004 (1.000-1.030) Urine Protein Negative (Negative) Urine Glucose (UA) Negative (Negative) Diagnostic Findings Abdomen/Pelvis CT 03/19/22 10:02 CT abd pelvis IV con only CLINICAL HISTORY: LLQ abd pain, fevers, re-eval diverticulitis TECHNIQUE: Helical axial images of the abdomen and pelvis were obtained and displayed. Automated dose lowering techniques and/or adjustment according to patient size were utilized for this exam. This exam was performed with intravenous contrast. COMPARISON: Comparison is made to CT abdomen pelvis 03/14/2022 FINDINGS: Lower chest: Groundglass opacities are seen in the bilateral lung bases. Liver: Unremarkable. No focal lesions are seen. Gallbladder and biliary tree: No calcified gallstones. Normal caliber wall. No intra- or extrahepatic biliary ductal dilation. Pancreas: Unremarkable, no focal lesions. Spleen: Unremarkable. Adrenals: Unremarkable. Kidneys and ureters: Subcentimeter hypodensities are too small to characterize. Bladder: Unremarkable. Reproductive organs: Unremarkable. Bowel: Sigmoid colonic wall thickening and surrounding fat stranding is seen. There is a tiny focus of extraluminal air. Lymph nodes Retroperitoneal: Unremarkable. Mesenteric: Unremarkable. Pelvic: Unremarkable. Peritoneum: Normal. Vessels: Fat stranding is seen in the right lower quadrant. Abdominal wall: A fat-containing umbilical hernia is seen. Bones: Degenerative changes in the visualized spine. IMPRESSION: Redemonstration of sigmoid diverticulitis. In the interval, there is development of extraluminal gas suggesting a perforation. No abscess formation is seen. ACT 112: Negative or not required by law. Electronically signed by: Teja Alvarado M.D. 03/19/2022 2:05 PM
[2022-03-19] MEDS ORDERED: CONSULT PHARMACY STA (17:15)
--- NOTE | 2022-03-19 19:18 | XRay Report ---
XR chest 1V portable CLINICAL HISTORY: covid positive TECHNIQUE: Single frontal radiograph of the chest was obtained. Comparison: None available at the time of this dictation. FINDINGS: No lines and tubes are seen. The cardiomediastinal silhouette is normal. The lungs are clear. No evid ence of pleural effusion or pneumothorax. IMPRESSION: No acute abnormality and in particular no evidence of pneumonia. ACT 112: Negative or not required by law. Electronically signed by: Teja Alvarado M.D. 03/19/2022 7:15 PM
--- NOTE | 2022-03-19 20:08 | Surgery Consultation ---
Date of Consultation March 19, 2022 Assessment & Plan (1) Diverticulitis of colon with perforation: Patient has been admitted on the hospitalist service. We recommend proceeding as follows: Provide analgesics provide antiemetics Implement n.p.o. status Provide IV fluid for hydration Continue antibiotics. The patient has received ertapenem in the emergency department I had a discussion with the patient outlining the treatment plan above for diverticulitis. I did discuss with her that would be preferable to avoid surgical intervention in the setting of an acute infection which would likely require temporary colostomy and she expressed her understanding. As the patient's symptoms improve consideration be given to advancing her diet beginning with clear liquids It is noted to mention that the patient does have a positive test for COVID-19 and this will be treated as directed by the medical service We will also monitor the patient closely for signs or symptoms of C. difficile as she has been afflicted with this in the past History of Present Illness Reason for Consultation: Diverticulitis History of Present Illness This is a 51-year-old female who presented to [facility] emergency department secondary to abdominal pain. Patient notes that she has a history of diverticulitis in February 2021 approximately 1 year ago. She notes that during this time. This was her first episode ever of diverticulitis. Patient says that she was treated conservatively with bowel rest, antibiotics, and intravenous fluids but did have a hospital course complicated by C. difficile infection. Patient says when she had C. difficile infection she had severe diarrhea but she knows that she has recovered from this. She does report that she has had a colonoscopy she believes in July 2021 and to the best of her knowledge there is no significant pathology noted. She was seen by Dr. Meir Way of general surgery and conservative measures were recommended as this was the patient's first episode of diverticulitis. It is no other mention the patient reports that she has had prior abdominal surgery in the form of a hysterectomy. The patient presented to [facility] emergency department 03/14/2022 secondary to abdominal pain in the left lower quadrant. During this visit to the emergency department the patient had a CT scan of the abdomen pelvis that showed findings compatible with acute diverticulitis. There is no evidence of perforation or abscess. Patient was able to be discharged home with conservative measures in place. She represented to the emergency department today due to worsening left lower quadrant pain. She also notes that over the past 3 to 4 days she has been having fevers as high as 102. She notes that the pain is in the left lower quadrant without radiation or other modifying factors. She denies any diarrhea. She denies any nausea vomiting. She did have labs and imaging this admission and a chest x-ray showed no evidence of pneumonia. A CT scan of the abdomen pelvis was performed that showed redemonstration of her sigmoid diverticulitis however when compared to her most recent CT scan there was development of some extraluminal gas which was suggestive of a perforation. No abscess was noted. Patient's current labs include a CBC her white blood cell count, hemoglobin, hematocrit, and platelet count are all noted to be normal. A chemistry profile shows sodium, potassium, and creatinine are all normal. There is no significant elevation of LFTs or lipase. Her procalcitonin is 1.93. Urinalysis was not indicative of infection. Patient was also tested for influenza a and B as well as RSV all of which were negative but she was noted to be positive for COVID. At the time of my interview she was resting comfortably in bed and she was in no distress Allergies Allergy/AdvReac Type Severity Reaction Status Date / Time Penicillins Allergy Severe THROAT Verified 03/19/22 12:53 SWELLING,RASH clarithromycin Allergy Intermediate RASH Verified 03/19/22 12:53 Sulfa (Sulfonamide Allergy Intermediate RASH Verified 03/19/22 12:53 Antibiotics) Home Medications Medication Instructions Recorded Confirmed Type azelastine 205.5 mcg (0.15 %) 2 spray INTRANASAL DAILY PRN 03/13/21 03/19/22 History nasal spray ketorolac 10 mg tablet 10 mg PO Q6H PRN #20 tab 03/14/22 03/19/22 Rx loratadine 10 mg tablet (Claritin) 10 mg PO DAILY PRN 03/14/22 03/19/22 History Saccharomyces boulardii 50 mg 0 mg PO DAILY 03/19/22 03/19/22 History capsule moxifloxacin 400 mg tablet 400 mg PO DAILY 03/19/22 03/19/22 History ondansetron HCl 4 mg tablet 4 mg PO Q6 PRN 03/19/22 03/19/22 History vancomycin 125 mg capsule 125 mg PO DAILY 03/19/22 03/19/22 History Patient History Medical History Clostridioides difficile infection (04/15/21) Positive for C. difficile toxin B gene DNA by PCR (Amplified Probe). Presumptive negative for C. difficile 027-NAP1-B1 strain by PCR (Amplified Probe). Tx by PCP/GI Vancomycin 125 mg orally 4 times daily for 10 days Cyst of right breast Diverticulitis Leiomyoma of uterus S/p hysterectomy ~2014. 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[employer]; 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[employer] How many Children do You have: 2 How many Children do You have Comment: 2 grandkids Feels Safe at Home: Yes Assistive Devices: None Review of Systems Constitutional: + fever Eyes: no diplopia Ear, Nose, Mouth, Throat: no ear pain Respiratory: no cough and no dyspnea Cardiovascular: no chest pain Gastrointestinal: + abdominal pain; no diarrhea/loose stools Genitourinary: no dysuria Musculoskeletal: no back pain Integumentary: no rash Neurologic: no localized weakness Physical Exam Constitutional: WD/WN, vitals as above Eyes: no conjunctival abnormality ENMT: Ears: no hearing impairment and no external ear abnormality Neck: trachea midline Respiratory: normal respiratory effort; no respiratory distress and no labored breathing Cardiovascular: Rate/Rhythm: regular rate and regular rhythm Gastrointestinal (Abdomen): Abdomen is soft and nondistended. There is no rebound tenderness or guarding. The patient did have pain with palpation in the left lower quadrant Musculoskeletal: No calf tenderness Skin: no rashes Neurologic: moves all extremities Psychiatric: A+Ox3, euthymic affect Results & Data ([facility]) Vital Signs (Past 12 Hours) Vital Signs Temp Pulse Resp BP BP Pulse Ox 03/19/22 15:00 36.8 C 18 127/85 99 03/19/22 13:45 36.6 C 18 119/84 99 03/19/22 09:47 36.8 C 77 16 143/90 H 99 PG Care Time/CCT Total # of Minutes Spent Total Time Spent with Patient: Total time spent is greater than 50% in coordination of care (as documented) at patient's floor/unit and/or counseling patient: Coding Level of Care Code 80909 Inpt Consult Level 5 Diagnoses Diverticulitis of colon with perforation K57.20
[2022-03-19] MEDS ORDERED: LORATADINE 10 MG TAB PO PRN (21:00)
[2022-03-19] MEDS ORDERED: ACETAMINOPHEN 325 MG TAB PO PRN (21:00)
[2022-03-19] MEDS ORDERED: ONDANSETRON INJ 2 MG/ML 2 ML VIAL IV PRN (21:00)
[2022-03-19] MEDS: KETOROLAC TROMETHAMINE 15 MG/ML VIAL IV PRN (21:11)
[2022-03-19] MEDS ORDERED: ERTAPENEM CONSULT ACTIVE PRN (21:21)
[2022-03-20] MEDS ORDERED: LORATADINE 10 MG TAB PO ONE (05:00)
[2022-03-20 08:56] LABS: Hemoglobin 14.5 g/dL (12.0-16.0); Mean Corpuscular Hemoglobin 28.8 pg (25-34); Mean Corpuscular Hgb Conc 33.7 g/dL (32-36); Mean Corpuscular Volume 85.3 fL (80-100); Mean Platelet Volume 9.5 fL (7.4-10.4); Platelet Count 222 K/uL (130-400); RDW Coefficient of Variation 13.4 % (11.5-14.5); RDW Standard Deviation 41.8 fL (36.4-46.3); Red Blood Count 5.04 M/uL (4.2-5.4); White Blood Count 6.72 K/uL (4.8-10.8)
[2022-03-20 09:26] LABS: BUN Creatinine Ratio 7.9 (10-20); Creatinine Clr Calc Pharmacy 116.8 ml/min; Est GFR (African American) 119.5 ml/min; Est GFR (Non-African American) 103.1 ml/min; Potassium 3.8 mmol/L (3.5-5.1)
[2022-03-20] MEDS: SACCHAROMYCES BOULARDII 250 MG CAP PO SCH (10:27)
[2022-03-20] MEDS: RASPBERRY SYRUP 5 ML UDP PO SCH (10:28)
[2022-03-20] MEDS: VANCOMYCIN HCL 125 MG/2.5ML SOLN PO SCH (10:29)
[2022-03-20] MEDS: ENOXAPARIN INJ 40 MG/0.4 ML SYR SQ SCH (10:30)
[2022-03-20] MEDS: SODIUM CHLORIDE 0.9% 1000ML 1,000 ML IV SCH ×2 (10:32→22:55)
[2022-03-20] MEDS: KETOROLAC TROMETHAMINE 15 MG/ML VIAL IV PRN (16:04)
[2022-03-20] MEDS: ERTAPENEM SODIUM 1,000 MG in SYRINGE 0 ML IV SCH (16:11)
--- NOTE | 2022-03-20 16:53 | Hospitalist Progress Note ---
Date of Service March 20, 2022 Assessment & Plan (1) Diverticulitis: Plan: Persistent acute sigmoid diverticulitis with perforation CT ABD:Re-demonstration of sigmoid diverticulitis. In the interval, there is development of extraluminal gas suggesting a perforation. No abscess formation is seen. Blood cultures pending Continue IV antibiotics N.p.o. for now Gentle IV fluids Appreciate surgery input Pain control Will need surgery eventually (2) History of Clostridioides difficile infection: Plan: continue daily vancomycin while on antibiotics. Retest stool for C. 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 (4) COVID: Plan: H/O COVID in Dec 21 Suspected reinfection CXR no acute process Asymptomatic currently Saturating well on room air Continue isolation (5) DVT prophylaxis: Plan: Lovenox SQ Code Status Full Code Admission and Anticipated Discharge Date Admission Date: March 19, 2022 Subjective Patient is seen and examined at bedside States having left-sided abdominal pain, some back pain Also reports diarrhea yesterday but no bowel movement today Denies any nausea, vomiting, chest pain, shortness of breath Offers no other complaints Review of Systems Review of Systems: All systems reviewed & are unremarkable except as noted in Subjective Physical Exam Physical Exam: Physical Exam: Vitals signs as noted above General Appearance:Moderately built and nourished, no apparent distress Head: normocephalic, Atraumatic Eyes: normal inspection, EOMI Neck: supple, Trachea midline Respiratory/Chest: Normal breath sounds, CTA, No accessory muscle use Cardiovascular: S1, S2, No murmur Abdomen/GI:Soft, LLQ/LUQ tender, Bowel sounds present Extremities/Musculoskeletal:normal inspection, no edema Neurologic/Psych:AAOX3, grossly no focal neurological deficits Skin: normal color, warm Results & Data Results & Data ([facility]) Vital Signs (Past 12 Hours) Vital Signs Temp Pulse Resp BP Pulse Ox 03/20/22 14:40 36.7 C 71 16 138/87 98 03/20/22 08:37 36.5 C 73 18 131/88 98 Laboratory Results Short CBC 03/20/22 Range/Units 08:12 WBC 6.72 (4.8-10.8) K/uL Hgb 14.5 (12.0-16.0) g/dL Hct 43.0 (37-47) % Plt Count 222 (130-400) K/uL BMP 03/20/22 08:12 Sodium 138 Potassium 3.8 Chloride 106 Carbon Dioxide 23 BUN 5 L Creatinine 0.63 Glucose 77 Calcium 9.0
--- NOTE | 2022-03-21 08:01 | Surgery Progress Note ---
Date of Service March 21, 2022 Assessment & Plan (1) Diverticulitis of colon with perforation: Plan: Will allow patient to have clear liquids at lunch Advance diet slowly clears only today Continue IV antibiotics Dr. Bejarano is covering over the weekend Admission and Anticipated Discharge Date Admission Date: March 19, 2022 Subjective Awake and alert Vital signs stable She is very hungry with minimal pain Review of Systems Constitutional: + fever Eyes: no diplopia Ear, Nose, Mouth, Throat: no ear pain Respiratory: no cough and no dyspnea Cardiovascular: no chest pain Gastrointestinal: + abdominal pain; no diarrhea/loose stools Genitourinary: no dysuria Musculoskeletal: no back pain Integumentary: no rash Neurologic: no localized weakness Physical Exam Physical Exam: Awake and alert Normal affect Abdomen is soft and minimal tenderness Results & Data ([facility]) Vital Signs (Past 12 Hours) Vital Signs Temp Pulse Resp BP Pulse Ox 03/21/22 07:34 36.7 C 52 L 16 132/84 97 03/20/22 22:58 36.7 C 69 16 127/78 97 PG Care Time/CCT Total # of Minutes Spent Total Time Spent with Patient: Total time spent is greater than 50% in coordination of care (as documented) at patient's floor/unit and/or counseling patient: Coding Level of Care Code 28923 Subseq Hosp Care Lvl 2 Diagnoses Diverticulitis of colon with perforation K57.20
[2022-03-21 08:08] LABS: Hematocrit (blood only) 39.2 % (37-47); Hemoglobin 13.4 g/dL (12.0-16.0); Mean Corpuscular Hemoglobin 29.1 pg (25-34); Mean Corpuscular Hgb Conc 34.2 g/dL (32-36); Mean Platelet Volume 9.1 fL (7.4-10.4); Platelet Count 250 K/uL (130-400); RDW Coefficient of Variation 13.1 % (11.5-14.5); RDW Standard Deviation 41.3 fL (36.4-46.3); Red Blood Count 4.61 M/uL (4.2-5.4)
[2022-03-21 08:32] LABS: BUN Creatinine Ratio 10.1 (10-20); Calcium 8.6 mg/dl (8.5-10.1); Creatinine Clr Calc Pharmacy 106.6 ml/min; Est GFR (Non-African American) 100.1 ml/min; Potassium 3.8 mmol/L (3.5-5.1)
[2022-03-21] MEDS: SACCHAROMYCES BOULARDII 250 MG CAP PO SCH (09:28)
[2022-03-21] MEDS: ENOXAPARIN INJ 40 MG/0.4 ML SYR SQ SCH (09:28)
[2022-03-21] MEDS: RASPBERRY SYRUP 5 ML UDP PO SCH (09:29)
[2022-03-21] MEDS: VANCOMYCIN HCL 125 MG/2.5ML SOLN PO SCH (09:30)
--- NOTE | 2022-03-21 15:58 | Hospitalist Progress Note ---
Date of Service March 21, 2022 Assessment & Plan (1) Diverticulitis: Plan: Persistent acute sigmoid diverticulitis with perforation CT ABD:Re-demonstration of sigmoid diverticulitis. In the interval, there is development of extraluminal gas suggesting a perforation. No abscess formation is seen. Blood cultures No growth to date Continue IV antibiotics Received gentle IV fluids Appreciate surgery input Pain control Will need surgery eventually Clear liquid diet today (2) History of Clostridioides difficile infection: Plan: continue daily vancomycin while on antibiotics. Retest stool for C. 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 (4) COVID: Plan: H/O COVID in Dec 21 Suspected reinfection CXR no acute process Asymptomatic currently Saturating well on room air Continue isolation (5) DVT prophylaxis: Plan: Lovenox SQ Code Status Full Code Admission and Anticipated Discharge Date Admission Date: March 19, 2022 Subjective Patient is seen and examined at bedside Abdominal pain much improved Tolerated clear liquid diet No new complaints Denies any nausea, vomiting, chest pain, dyspnea Review of Systems Review of Systems: All systems reviewed & are unremarkable except as noted in Subjective Physical Exam Physical Exam: Physical Exam: Vitals signs as noted above General Appearance:Moderately built and nourished, no apparent distress Head: normocephalic, Atraumatic Eyes: normal inspection, EOMI Neck: supple, Trachea midline Respiratory/Chest: Normal breath sounds, CTA, No accessory muscle use Cardiovascular: S1, S2, No murmur Abdomen/GI:Soft, non tender, Bowel sounds present Extremities/Musculoskeletal:normal inspection, no edema Neurologic/Psych:AAOX3, grossly no focal neurological deficits Skin: normal color, warm Results & Data Results & Data ([facility]) Vital Signs (Past 12 Hours) Vital Signs Temp Pulse Resp BP Pulse Ox 03/21/22 15:13 36.6 C 67 16 134/83 98 03/21/22 07:34 36.7 C 52 L 16 132/84 97 Laboratory Results Short CBC 03/21/22 Range/Units 08:00 WBC 6.10 (4.8-10.8) K/uL Hgb 13.4 (12.0-16.0) g/dL Hct 39.2 (37-47) % Plt Count 250 (130-400) K/uL BMP 03/21/22 08:00 Sodium 139 Potassium 3.8 Chloride 109 H Carbon Dioxide 23 BUN 7 Creatinine 0.69 Glucose 80 Calcium 8.6
[2022-03-21] MEDS: ERTAPENEM SODIUM 1,000 MG in SYRINGE 0 ML IV SCH (16:07)
[2022-03-22 07:11] LABS: Hematocrit (blood only) 39.9 % (37-47); Hemoglobin 13.9 g/dL (12.0-16.0); Mean Corpuscular Hemoglobin 29.4 pg (25-34); Mean Corpuscular Hgb Conc 34.8 g/dL (32-36); Mean Corpuscular Volume 84.4 fL (80-100); Platelet Count 278 K/uL (130-400); RDW Coefficient of Variation 13.1 % (11.5-14.5); RDW Standard Deviation 40.6 fL (36.4-46.3); Red Blood Count 4.73 M/uL (4.2-5.4); White Blood Count 5.66 K/uL (4.8-10.8)
[2022-03-22 07:24] LABS: BUN Creatinine Ratio 10.8 (10-20); Calcium 8.9 mg/dl (8.5-10.1); Creatinine Clr Calc Pharmacy 113.2 ml/min; Est GFR (African American) 118.3 ml/min; Est GFR (Non-African American) 102.1 ml/min
[2022-03-22] MEDS: VANCOMYCIN HCL 125 MG/2.5ML SOLN PO SCH (08:13)
[2022-03-22] MEDS: ENOXAPARIN INJ 40 MG/0.4 ML SYR SQ SCH (08:13)
[2022-03-22] MEDS: RASPBERRY SYRUP 5 ML UDP PO SCH (08:13)
[2022-03-22] MEDS: SACCHAROMYCES BOULARDII 250 MG CAP PO SCH (08:14)
--- NOTE | 2022-03-22 10:23 | Surgery Progress Note ---
Date of Service March 22, 2022 Assessment & Plan (1) Diverticulitis of colon with perforation: Plan: Will advance diet to low fiber today. May convert IV antibiotics to p.o. antibiotics today. Probable discharge tomorrow. Admission and Anticipated Discharge Date Admission Date: March 19, 2022 Physical Exam Physical Exam: Awake and alert Normal affect Abdomen is soft and minimal tenderness Constitutional: WD/WN, vitals as above Neck: trachea midline Skin: no rashes Neurologic: moves all extremities Psychiatric: A+Ox3, euthymic affect Results & Data ([facility]) Vital Signs (Past 12 Hours) Vital Signs Temp Pulse Resp BP Pulse Ox 03/22/22 08:10 36.7 C 71 16 122/85 95 Laboratory Results 03/22/22 03/22/22 Range/Units 06:38 06:38 WBC 5.66 (4.8-10.8) K/uL RBC 4.73 (4.2-5.4) M/uL Hgb 13.9 (12.0-16.0) g/dL Hct 39.9 (37-47) % MCV 84.4 (80-100) fL MCH 29.4 (25-34) pg MCHC 34.8 (32-36) g/dL RDW Std Deviation 40.6 (36.4-46.3) fL RDW Coeff of Sam 13.1 (11.5-14.5) % Plt Count 278 (130-400) K/uL MPV 9.0 (7.4-10.4) fL Sodium 139 (136-145) mmol/L Potassium 4.0 (3.5-5.1) mmol/L Chloride 108 H (98-107) mmol/L Carbon Dioxide 24 (21-32) mmol/L Anion Gap 7 (3-11) BUN 7 (6-23) mg/dl Creatinine 0.65 (0.6-1.2) mg/dl Est Cr Clr Drug Dosing 113.2 ml/min Est GFR ( Amer) 118.3 ml/min Est GFR (Non-Af Amer) 102.1 ml/min BUN/Creatinine Ratio 10.8 (10-20) Glucose 91 (70-99(Fasting)) mg/dl Calcium 8.9 (8.5-10.1) mg/dl
[2022-03-22] MEDS ORDERED: diphenhydrAMINE 50 MG/ML VIAL IV PRN (11:00)
[2022-03-22] MEDS: CEFDINIR 300 MG CAP PO SCH ×2 (11:54→21:43)
[2022-03-22] MEDS: metroNIDAZOLE 500 MG TAB PO SCH ×2 (11:54→18:49)
[2022-03-22 12:21] LABS: Adenovirus F 40/41 PCR Not Detected (NotDetected); Astrovirus PCR Not Detected (NotDetected); Campylobacter PCR Not Detected (NotDetected); Clostridium diff Toxin A/B PCR Not Detected (NotDetected); Cryptosporidium PCR Not Detected (NotDetected); Cyclospora cayetanensis PCR Not Detected (NotDetected); Entamoeba histolytica PCR Not Detected (NotDetected); Enteroaggregative E.coli(EAEC) Not Detected (NotDetected); Enteropathogenic E.coli (EPEC) Not Detected (NotDetected); Enterotoxigenic E.coli (ETEC) Not Detected (NotDetected); Giardia lamblia PCR Not Detected (NotDetected); Norovirus GI/GII PCR Not Detected (NotDetected); Plesiomonas shigelloides PCR Not Detected (NotDetected); Rotavirus A PCR Not Detected (NotDetected); Salmonella PCR Not Detected (NotDetected); Sapovirus PCR Not Detected (NotDetected); Shiga-like Toxin E.coli (STEC) Not Detected (NotDetected); Shigella/Enteroinvasive E.coli Not Detected (NotDetected); Vibrio cholerae PCR Not Detected (NotDetected); Vibrio species PCR Not Detected (NotDetected); Yersinia enterocolitica PCR Not Detected (NotDetected)
--- NOTE | 2022-03-22 14:59 | Hospitalist Progress Note ---
Date of Service March 22, 2022 Assessment & Plan (1) Diverticulitis: Plan: Persistent acute sigmoid diverticulitis with perforation CT ABD:Re-demonstration of sigmoid diverticulitis. In the interval, there is development of extraluminal gas suggesting a perforation. No abscess formation is seen. Blood cultures No growth to date Continue IV Ertapenem>>>Transition to Omnicef, Flagyl Received IV fluids Appreciate surgery input Pain control Will need surgery eventually Advanced to low fiber diet (2) History of Clostridioides difficile infection: Plan: continue daily vancomycin while on antibiotics. Retest stool for C. 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 (4) COVID: Plan: H/O COVID in Dec 21 Suspected reinfection CXR no acute process Asymptomatic currently Saturating well on room air Continue isolation (5) DVT prophylaxis: Plan: Lovenox SQ Code Status Full Code Admission and Anticipated Discharge Date Admission Date: March 19, 2022 Subjective Patient is seen and examined at bedside Doing well Romeo abd pain Tolerating diet Denies any nausea, vomiting, chest pain, dyspnea Review of Systems Review of Systems: All systems reviewed & are unremarkable except as noted in Subjective Physical Exam Physical Exam: Physical Exam: Vitals signs as noted above General Appearance:Moderately built and nourished, no apparent distress Head: normocephalic, Atraumatic Eyes: normal inspection, EOMI Neck: supple, Trachea midline Respiratory/Chest: Normal breath sounds, CTA, No accessory muscle use Cardiovascular: S1, S2, No murmur Abdomen/GI:Soft, non tender, Bowel sounds present Extremities/Musculoskeletal:normal inspection, no edema Neurologic/Psych:AAOX3, grossly no focal neurological deficits Skin: normal color, warm Results & Data Results & Data ([facility]) Vital Signs (Past 12 Hours) Vital Signs Temp Pulse Resp BP Pulse Ox 03/22/22 08:10 36.7 C 71 16 122/85 95 Laboratory Results Short CBC 03/22/22 Range/Units 06:38 WBC 5.66 (4.8-10.8) K/uL Hgb 13.9 (12.0-16.0) g/dL Hct 39.9 (37-47) % Plt Count 278 (130-400) K/uL BMP 03/22/22 06:38 Sodium 139 Potassium 4.0 Chloride 108 H Carbon Dioxide 24 BUN 7 Creatinine 0.65 Glucose 91 Calcium 8.9
[2022-03-23] MEDS: metroNIDAZOLE 500 MG TAB PO SCH ×2 (03:58→11:12)
[2022-03-23] MEDS: CEFDINIR 300 MG CAP PO SCH (08:43)
[2022-03-23] MEDS: SACCHAROMYCES BOULARDII 250 MG CAP PO SCH (08:43)
[2022-03-23] MEDS: RASPBERRY SYRUP 5 ML UDP PO SCH (08:54)
[2022-03-23] MEDS: VANCOMYCIN HCL 125 MG/2.5ML SOLN PO SCH (08:54)
--- NOTE | 2022-03-23 12:26 | Hospitalist Progress Note ---
Date of Service March 23, 2022 Assessment & Plan (1) Diverticulitis: Plan: Persistent acute sigmoid diverticulitis with perforation CT ABD:Re-demonstration of sigmoid diverticulitis. In the interval, there is development of extraluminal gas suggesting a perforation. No abscess formation is seen. Blood cultures No growth to date Continue IV Ertapenem>>>Transition to Omnicef, Flagyl Received IV fluids Appreciate surgery input Pain control Will need surgery eventually Tolerated low fiber diet Advised to follow up with surgery upon discharge (2) History of Clostridioides difficile infection: Plan: continue daily vancomycin while on antibiotics. Retest stool for C. 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 (4) COVID: Plan: H/O COVID in Dec 21 Suspected reinfection CXR no acute process Asymptomatic currently Saturating well on room air Continue isolation (5) DVT prophylaxis: Plan: Lovenox SQ Code Status Full Code Admission and Anticipated Discharge Date Admission Date: March 19, 2022 Subjective Patient is seen and examined at bedside Offers no complaints Denies any abd pain, nausea, vomiting, chest pain, dyspnea Plan to discharge home today Review of Systems Review of Systems: All systems reviewed & are unremarkable except as noted in Subjective Physical Exam Physical Exam: Physical Exam: Vitals signs as noted above General Appearance:Moderately built and nourished, no apparent distress Head: normocephalic, Atraumatic Eyes: normal inspection, EOMI Neck: supple, Trachea midline Respiratory/Chest: Normal breath sounds, CTA, No accessory muscle use Cardiovascular: S1, S2, No murmur Abdomen/GI:Soft, non tender, Bowel sounds present Extremities/Musculoskeletal:normal inspection, no edema Neurologic/Psych:AAOX3, grossly no focal neurological deficits Skin: normal color, warm Results & Data Results & Data ([facility]) Vital Signs (Past 12 Hours) Vital Signs Temp Pulse Resp BP Pulse Ox 03/23/22 07:22 36.8 C 65 18 119/82 97
--- NOTE | 2022-03-23 13:33 | Surgery Progress Note ---
Date of Service March 23, 2022 Assessment & Plan (1) Diverticulitis of colon with perforation: Plan: Doing well. Asymptomatic. Discharged home today. Follow-up as outpatient with general surgery. Admission and Anticipated Discharge Date Admission Date: March 19, 2022 Subjective Doing well. Tolerating diet. Denies nausea or vomiting. Denies pain. Denies fevers and chills. He would like to go home. Physical Exam Physical Exam: Awake and alert Normal affect Abdomen is soft and minimal tenderness Constitutional: WD/WN, vitals as above Neck: trachea midline Skin: no rashes Neurologic: moves all extremities Psychiatric: A+Ox3, euthymic affect Results & Data ([facility]) Vital Signs (Past 12 Hours) Vital Signs Temp Pulse Resp BP Pulse Ox 03/23/22 07:22 36.8 C 65 18 119/82 97
--- NOTE | 2022-03-23 13:48 | Discharge Summary ---
Date of Service March 23, 2022 Admission HPI Per Admitting Provider 51 yo F with a history of c-difficile infection on vancomycin taper presents with persistent abdominal pain, fever after diagnosis and treatment of acute diverticulitis. She presented to the ER on 03/14 for LLQ pain. A CT at that time was performed revealing acute sigmoid diverticulitis and she was given IV cipro, PO flagyl, IV saline and IV toradol. She did a telemedicine visit with her PCP, Dr. Rosa while in the ER and was started on moxifloxacin and once daily vancomycin with her h/o c-diff and was sent home. She presents today with persistent, worsening symptoms. Repeat CT scan with IV contrast today reveals persistent sigmoid diverticulitis with interval development of extraluminal gas suggesting a performation. No abscess formation is seen. ROS reveals nosebleeds despite stopping her nasal sprays. Diarrhea she reports is "not -diff diarrhea" that occurred over the weekend. Persistent fevers nightly with the last yesterday. Also gets chills, and will break and become diaphoretic. She is persistently positive for COVID after having it in Dec 21. She has a new left lower mouth sore, as well. Admission Exam Per Admitting Provider Physical Exam Physical Exam: CONSTITUTIONAL: WNWD, vitals as above, generally well- appearing, NAD EYES: PERRL, normal conjuctivae, no scleral icterus ENT: external ear and nose normal, oropharynx clear, no TM abnormality, no maxillary or ethmoid sinus tenderness NECK: trachea midline, no lymphadenopathy RESPIRATORY: clear to auscultation bilaterally, no crackles, rales or wheezes, normal respiratory effort CARDIOVASCULAR: regular rate and rhythm, S1 and 2 heard without murmurs, gallops or rubs, no JVD, no peripheral edema CHEST: inspection of chest was normal GASTROINTESTINAL: soft, nontender, no guarding, nondistended MUSCULOSKELETAL: strength 5/5 throughout, head is normocephalic and atraumatic, neck supple SKIN: warm and dry NEUROLOGIC: CN 2-12 grossly intact, no sensory deficit, normal cognition, normal speech PSYCHIATRIC: alert cooperative and oriented to person, place and time. Principal Diagnosis Acute sigmoid diverticulitis with perforation COVID 19 Infection Discharge Data Allergies Allergy/AdvReac Type Severity Reaction Status Date / Time Penicillins Allergy Severe THROAT Verified 03/19/22 12:53 SWELLING,RASH clarithromycin Allergy Intermediate RASH Verified 03/19/22 12:53 Sulfa (Sulfonamide Allergy Intermediate RASH Verified 03/19/22 12:53 Antibiotics) Consultations 03/19/22 15:14 ED Decision to Admit Stat 03/19/22 21:00 Consult General Surgery Routine Ordered Studies 03/19/22 10:02 CT abd pelvis IV con only Stat Hospital Course (1) Diverticulitis: Persistent acute sigmoid diverticulitis with perforation CT ABD:Re-demonstration of sigmoid diverticulitis. In the interval, there is development of extraluminal gas suggesting a perforation. No abscess formation is seen. Blood cultures No growth to date Continue IV Ertapenem>>>Transition to Omnicef, Flagyl Received IV fluids Appreciate surgery input Pain control Will need surgery eventually Tolerated low fiber diet Advised to follow up with surgery upon discharge (2) History of Clostridioides difficile infection: continue daily vancomycin while on antibiotics. Retest stool for C. 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 (4) COVID: H/O COVID in Dec 21 Suspected reinfection CXR no acute process Asymptomatic currently Saturating well on room air Continue isolation (5) DVT prophylaxis: Lovenox SQ Code Status Full Code Total Time Total Time Spent Total Time Spent (In Minutes): 42 minutes Discharge Plan Discharge Items Patient Disposition: Home - Self-Care Reason For Visit: ACUTE DIVERTICULITIS,FAILING OUTPATIENT ABX THERAP Discharge Diagnosis: Acute sigmoid diverticulitis with perforation COVID 19 Infection Activity: Resume your previous activity Exercise/Sports: Gradually increase as tolerated Non-emergency contact: Primary Care Provider and Surgeon Call non-emergency contact if: you have any medication questions, your symptoms worsen, your pain is concerning for you and you have a fever Follow-up/Referrals: Lacy Rosa MD [Primary Care Provider] - (Date & Time 03/28/2022 11:00 AM Provider Lacy Rosa MD [facility] *Please note the time change-- appointment is now at 1100*) Diet: Low Fiber Addtl Attending Provider Instructions: Follow up with your PCP on 03/28/2022 11:00 AM Follow up with your Surgeon / in 2 weeks as advised ---Complete the antibiotic (Cefdinir and Flagyl) course as prescribed. Seek immediate medical attention if your symptoms reoccur or worsen Please take all medications as instructed on discharge list below. Please call if you have any questions or problems. You can reach a Vinay hospitalist on duty at [facility] 24 hours a day by calling [phone] Home Isolation COVID-19 Instructions The following information about Home Isolation is from the CDC Website: https://www.cdc.gov/coronavirus/2019-ncov/hcp/jegpoiye-hntpzvu-xbwjdf.html Stay home except to get medical care People who are mildly ill with COVID-19 are able to isolate at home during their illness. You should restrict activities outside your home, except for getting medical care. Do not go to work, school, or public areas. Avoid using public transportation, ride-sharing, or taxis. Separate yourself from other people and animals in your home People: As much as possible, you should stay in a specific room and away from other people in your home. Also, you should use a separate bathroom, if available. Animals: You should restrict contact with pets and other animals while you are sick with COVID-19, just like you would around other people. Although there have not been reports of pets or other animals becoming sick with COVID-19, it is still recommended that people sick with COVID-19 limit contact with animals until more information is known about the virus. When possible, have another member of your household care for your animals while you are sick. If you are sick with COVID-19, avoid contact with your pet, including petting, snuggling, being kissed or licked, and sharing food. If you must care for your pet or be around animals while you are sick, wash your hands before and after you interact with pets and wear a face mask. Call ahead before visiting your doctor If you have a medical appointment, call the healthcare provider and tell them that you have or may have COVID-19. This will help the healthcare providers office take steps to keep other people from getting infected or exposed. Wear a face mask You should wear a face mask when you are around other people (e.g., sharing a room or vehicle) or pets and before you enter a healthcare providers office. If you are not able to wear a face mask (for example, because it causes trouble breathing), then people who live with you should not stay in the same room with you, or they should wear a face mask if they enter your room. Cover your coughs and sneezes Cover your mouth and nose with a tissue when you cough or sneeze. Throw used tissues in a lined trash can. Immediately wash your hands with soap and water for at least 20 seconds or, if soap and water are not available, clean your hands with an alcohol-based hand professor of food biochemistry that contains at least 60% alcohol. Clean your hands often Wash your hands often with soap and water for at least 20 seconds, especially after blowing your nose, coughing, or sneezing; going to the bathroom; and before eating or preparing food. If soap and water are not readily available, use an alcohol-based hand professor of food biochemistry with at least 60% alcohol, covering all surfaces of your hands and rubbing them together until they feel dry. Soap and water are the best option if hands are visibly dirty. Avoid touching your eyes, nose, and mouth with unwashed hands. Avoid sharing personal household items You should not share dishes, drinking glasses, cups, eating utensils, towels, or bedding with other people or pets in your home. After using these items, they should be washed thoroughly with soap and water. Clean all high-touch surfaces everyday High touch surfaces include counters, tabletops, doorknobs, bathroom fixtures, toilets, phones, keyboards, tablets, and bedside tables. Also, clean any surfaces that may have blood, stool, or body fluids on them. Use a household cleaning spray or wipe, according to the label instructions. Labels contain instructions for safe and effective use of the cleaning product including precautions you should take when applying the product, such as wearing gloves and making sure you have good ventilation during use of the product. Monitor your symptoms Seek prompt medical attention if your illness is worsening (e.g., difficulty breathing).Beforeseeking care, call your healthcare provider and tell them that you have, or are being evaluated for, COVID-19. Put on a face mask before you enter the facility. These steps will help the healthcare providers office to keep other people in the office or waiting room from getting infected or exposed. Ask your healthcare provider to call the local or [facility] health department. Persons who are placed under active monitoring or facilitated self- monitoring should follow instructions provided by their local health department or occupational health professionals, as appropriate. When working with your local health department check their available hours. If you have a medical emergency and need to call 911, notify the dispatch personnel that you have, or are being evaluated for COVID-19. If possible, put on a face mask before emergency medical services arrive. Discontinuing home isolation Patients with confirmed COVID-19 should remain under home isolation precautions until the risk of secondary transmission to others is thought to be low. The decision to discontinue home isolation precautions should be made on a [id number] basis, in consultation with healthcare providers and state and local health departments. Pending Studies at Discharge: Yes Studies:: Final Blood cultures Stand-Alone Forms: [facility], Smoking Cessation Medications and DC Order Prescriptions: New cefdinir 300 mg Capsule 300 mg PO BID Qty: 18 RF: 0 metronidazole 500 mg Tablet 500 mg PO Q8H Qty: 27 RF: 0 Saccharomyces boulardii [Florastor] 250 mg Capsule 250 mg PO DAILY Qty: 30 RF: 0 Continued azelastine 205.5 mcg (0.15 %) spray,non-aerosol 2 spray INTRANASAL DAILY PRN (Reason: ALLERGIES) RF: 0 loratadine [Claritin] 10 mg Tablet 10 mg PO DAILY PRN (Reason: Congestion) RF: 0 ketorolac 10 mg tablet 10 mg PO Q6H PRN (Reason: pain) Qty: 20 RF: 1 ondansetron HCl 4 mg tablet 4 mg PO Q6 PRN (Reason: Nausea) RF: 0 vancomycin 125 mg capsule 125 mg PO DAILY RF: 0 Florastor 50 mg Capsule 0 mg PO DAILY RF: 0 Discontinued moxifloxacin 400 mg tablet 400 mg PO DAILY RF: 0 Discharge Orders: Discharge Order (Routine); Ordered 03/23/22 Ordered By: Alfredo Don Admission Data Admit Date/Time: 03/19/22 16:43 Attending Provider: Alfredo Don Admit Provider: Amy Roldan Primary Care Provider: Lacy Rosa Other Providers: Amy Roldan ; Rubén Kumar ; [place]
== END 2022-03-23 14:00 | disposition home or self-care (01) | DRG 391 ==
LOC: ED 09:44 → 3W 16:43 → SUATTDRO 16:43 → 3W 20:39